=== PATIENT | female | born 1960 | race Caucasian/White ===

== ENCOUNTER 2021-09-29 16:26 | Inpatient (IN) | payer OTHER, SELFPAY ==
[2021-09-29] VITALS (21 sets, daily range): BP systolic 114–147; BP diastolic 62–79; PULSE 58–80; RESP 16–27; TEMP 36.9; O2SAT 92–100; BMI 38.2
--- NOTE | ~2021-09-29 | MR_ITS ---
EXAMINATION: MR abdomen wo/w con DATE: 10/02/2021 12:17 INDICATION: 6.8 cm left upper quadrant mass on prior CT TECHNIQUE: Magnetic resonance imaging (MRI) of the abdomen was performed without and with 20 mL Multi shivani intravenous contrast. Sequences included coronal T2-weighted SS-FSE, coronal and axial FS 2D-F IESTA, axial STIR FSE, axial T2-weighted SS-FSE, axial T2-weighted FS SS-FSE, axial diffusion-weighte d SE, axial dual-echo T1-weighted FSPGR, and axial and coronal T1-weighted LAVA. Postcontrast axial T 1-weighted LAVA images were obtained in a time course. Postcontrast coronal T1-weighted LAVA images w ere obtained. COMPARISON: CT dated 10/01/21 FINDINGS: Heart size is normal. No pericardial effusion. Small bilateral pleural effusions. There is also a sma ll amount of ascites as well as body wall edema. Peripancreatic edema and small amount of nonorganize d appearing acute peripancreatic fluid collection about the tail the pancreas consistent with acute p ancreatitis. There is approximately 303.5 similar globular region of edematous and nonenhancing paren chymal tissue at the tail of the pancreas suspicious for necrosis. There are also few small foci of i ncreased signal on the precontrast T1-weighted images along the periphery of the body and tail the pa ncreas which could represent proteinaceous fluid or hemorrhage. There is a nonocclusive filling defec t along a short segment of the adjacent splenic vein consistent with secondary thrombosis. Diffuse hepatic steatosis. Couple low signal intensity gallstones in the dependent aspect of the othe rwise normal gallbladder with no wall thickening or pericholecystic inflammatory change to suggest ac baldev cholecystitis. Common bile duct measures up to 7 mm in maximal diameter which is at the upper iqbal its of normal for age but which tapers smoothly distally with no evident obstructing stones or strict ure. No intrahepatic biliary ductal dilation. Spleen, right adrenal gland and right kidney are normal . 1 cm T2 hyperintense nonenhancing cyst at the lower pole of the left kidney. 7.3 x 6.7 cm complex cystic mass which appears to arise from the medial limb of the left adrenal glan d which centrally is homogeneously T1 isointense and slightly T1 hyperintense to skeletal muscle with out enhancement. There is a thin crescentic peripheral region on the lateral side of the mass which i s nearly without signal on T2-weighted images and mildly T1 hyperintense also without enhancement sug gesting proteinaceous/hemorrhagic fluid. This is separate from the larger cystic portion of the mass may be within curvilinear line of calcification on the prior CT. There is very thin peripheral smooth rim of enhancement. No solid nodular enhancing soft tissue component. Visualized portion of the bowels are normal with no dilated bowel to suggest obstruction. 9 mm pedunc ulated fibroid arising from the anterior uterine fundus. Visualized portion of the bladder is unremar kable. No pathologically enlarged lymphadenopathy in the abdomen or visualized pelvis. Bone marrow si gnal is normal throughout. IMPRESSION: 1. Acute pancreatitis with both interstitial component as well as a necrotic component along the tail of the pancreas with small nonloculated acute peripancreatic fluid collection, few small peripheral foci of T1 hyperintense either proteinaceous fluid or hemorrhage as well as small amount of nonocclus jaswant thrombus along short segment of the adjacent splenic vein. 2. Likely benign 7.3 x 6.7 cm complex cystic mass arising from the left adrenal gland with thin perip heral partially calcified rim on prior CT likely representing a chronic hematoma. No enhancing solid soft tissue component to suggest neoplasm. 3. Cholelithiasis with borderline dilation of the common bile duct but without evident obstructing st one or stricture and without intrahepatic biliary ductal dilation. 4.
--- NOTE | ~2021-09-29 | XR_ITS ---
EXAMINATION: XR chest 2V DATE: 10/02/2021 12:21 INDICATION: Pleural effusion TECHNIQUE: AP and lateral views of the chest are obtained. COMPARISON: None available FINDINGS: There are airspace opacities of the lung bases. Small pleural effusions are present. There is no pneumothorax. The cardiomediastinal silhouette is normal. There is mild thoracic spondylosis. C alcified pulmonary nodules are consistent with old granulomatous disease. A left upper extremity PICC ends with its tip in the right atrium. IMPRESSION: 1. Small pleural effusions with bibasilar airspace opacities, consistent with pulmonary edema and ate lectasis. 2. Left upper extremity PICC ending in the right atrium. Reviewed, dictated and finalized at location A. IMPRESSION: 1. Small pleural effusions with bibasilar airspace opacities, consistent with p ulmonary edema and atelectasis. 2. Left upper extremity PICC ending in the right atrium.
--- NOTE | ~2021-09-29 | CT_ITS ---
EXAMINATION: CT abdomen pelvis wo con DATE: 10/01/2021 09:50 INDICATION: Generalized abdominal pain. Acute pancreatitis. TECHNIQUE: Computed tomography (CT) of the abdomen and pelvis was performed without intravenous contr ast. Automated exposure control and iterative reconstruction technique were employed. The dose-length product was 1441.59 mGy-cm. COMPARISON: CT abdomen and pelvis 09/29/2021 FINDINGS: The visualized portions of the lung bases demonstrate smooth septal thickening, consistent with mild pulmonary edema. There are small pleural effusions. There is mild atelectasis bilaterally. Calcified right hilar and mediastinal lymph nodes are consistent with old granulomatous disease. The heart size is normal. There are coronary artery calcifications. No pericardial effusion. There is dif fuse hepatic steatosis. There are gallstones in the gallbladder, which is normal in size. Calcificati ons in the spleen are consistent with old granulomatous disease. There is fat stranding and free flui d in the retroperitoneum including around the pancreas. There is a small volume of ascites. Right adr enal gland is normal. There is a 6.8 cm mixed solid and cystic mass with calcifications around the cy stic component in left abdomen abutting the left adrenal gland and left kidney. The right kidney is n ormal. There is no urolithiasis. There are no dilated loops of bowel. The appendix is not well-visual ized. There are no pathologically enlarged lymph nodes. IMPRESSION: 1. Worsened findings of acute pancreatitis 2. Worsened small volume of ascites. 3. Worsened small pleural effusions. 4. 6.8 cm mixed solid and cystic mass in left abdomen abutting the left adrenal gland and left kidney that could arise from either organ. This finding may be benign or malignant. Abdomen MRI without and with contrast is recommended. 5. Cholelithiasis. 6. Diffuse hepatic steatosis. Reviewed, dictated and finalized at location A.
--- NOTE | ~2021-09-29 | US_ITS ---
US abdomen limited DATE: 09/30/2021 09:28 INDICATION: Mid abdominal pain TECHNIQUE: Real-time imaging of liver, pancreas, gallbladder COMPARISON: 09/29/2021 CT abdomen pelvis FINDINGS: There is hepatic steatosis. No hepatic space-occupying mass lesion is evident. Normal hepat opedal portal venous flow direction. Filling defects of the gallbladder with associated acoustical shadowing, consistent with cholelithias is. The pancreas is relatively hypoechoic, consistent with pancreatitis noted on CT imaging of 09/29/2021. The common bile duct measures 5 mm, within normal range IMPRESSION: Hepatic steatosis Pancreatitis Cholelithiasis Reviewed, dictated and finalized at Location [facility]. Reviewed, dictated and finalized at location A.
--- NOTE | ~2021-09-29 | CT_ITS ---
EXAMINATION: CT abdomen pelvis wo con DATE: 09/29/2021 17:34 INDICATION: mid abdominal pain, n/v TECHNIQUE: Computed tomography (CT) of the abdomen and pelvis was performed without intravenous contr ast. Automated exposure control and iterative reconstruction technique were employed. The dose-length product was 1293.34 mGy-cm. COMPARISON: None. FINDINGS: Lower thorax: Senescent changes and bibasilar atelectasis. Liver: Diffusely low density. Biliary/Gallbladder: Cholelithiasis. No bile duct dilation. Pancreas: Prominent peripancreatic inflammation and fluid. Spleen: Normal. Adrenals:6.4 cm cystic mass with thin rim calcification and peripheral soft tissue density, possibly associated with the left adrenal or left kidney. Right adrenal is normal Kidneys: Left suprarenal versus renal mass as above, no hydronephrosis or calcification. GI tract: No small or large bowel dilation. Normal appendix. Mesentery/Peritoneum: No ascites, mass, or free air. Retroperitoneum: No mass. Atherosclerotic abdominal aortic and/or arterial calcifications. Pelvis: Pelvic organs are within normal limits. Soft Tissues: Soft tissues and body wall unremarkable. Bones: No acute osseous finding. IMPRESSION: Acute interstitial pancreatitis. Left adrenal or renal mass, may reflect an old pseudocyst or other m ass, correlate with history and consider nonemergent, outpatient MRI of the abdomen for further janet cterization. Hepatic steatosis. Reviewed, dictated and finalized at location K. IMPRESSION: Acute interstitial pancreatitis. Left adrenal or renal mass, may reflect an old pseudocyst or other mass, correlate with history and consider nonemergent, out patient MRI of the abdomen for further characterization. Hepatic steatosis.
--- NOTE | 2021-09-29 16:40 | PC.NURSE ---
Dr. Clark at bedside to assess pt.
--- NOTE | 2021-09-29 16:46 | ED.ABDPAIN ---
HPI - Abdominal Pain General Chief Complaint: Abdominal Pain Stated Complaint: abd pain Time Seen by Provider: 09/29/21 16:34 History of Present Illness HPI narrative: 61-year-old female presenting to the emergency department for evaluation of mid abdominal pain. Patient states she began having the abdominal pain today and that is worsened. Patient does have associated nausea vomiting. Patient denies any diarrhea. Is unsure when she had a last bowel movement. Patient denies any prior surgical history. Denies any prior history of gallbladder disease. Patient denies frequent alcohol use or any recent heavy alcohol use. Patient denies any change in medications. Patient denies any prior history of pancreatitis. Related Data Allergies Allergy/AdvReac Type Severity Reaction Status Date / Time sulfamethoxazole Allergy Mild RASH Verified 11/19/18 06:08 trimethoprim Allergy Mild RASH Verified 11/19/18 06:08 Review of Systems Review of Systems: CONSTITUTIONAL: Denies fever, chills, or sweats. EYES: Denies visual changes, redness, or discharge. ENT: Denies rhinorrhea, congestion, sore throat, or otalgia. CARDIOVASCULAR: Denies chest pain, palpitations, or edema. RESPIRATORY: Denies cough or dyspnea. GASTROINTESTINAL: See HPI GENITOURINARY: Denies dysuria or hematuria. SKIN: Denies rash or itching. MUSCULOSKELETAL: Denies back pain, joint pain, or myalgia. NEUROLOGIC: Denies headache, numbness, or weakness. Exam Narrative: APPEARANCE: Well appearing, no pain, no distress, well-nourished. HEAD: normocephalic, atraumatic. EYES: PERRLA/EOMI, conjunctivae clear. NOSE: Normal no drainage NECK: Supple. No adenopathy, no masses. RESPIRATORY: Airway patent, respirations nonlabored. Clear to auscultation bilaterally, no rales, rhonchi, wheezing. CARDIOVASCULAR: Regular rate and rhythm without murmurs rubs or gallops. ABDOMINAL: Soft, nondistended, normal bowel sounds. Mid abdominal tenderness to palpation, minimal right upper quadrant tenderness to palpation MUSCULOSKELETAL: Moves all extremities. Strength/ROM intact, No edema, No calf tenderness. NEURO: Alert. Cranial nerves II through XII intact. Grossly intact SKIN: Warm, dry. Normal Color Course Course Emergency Course: CT shows evidence of acute interstitial pancreatitis. Patient's lipase is greater than 40,000. Patient did feel improved with IV fluids, Zofran and Dilaudid for pain control. Patient does have elevated AST and ALT but patient's alk phos and T bili are not elevated. Case discussed with hospitalist and patient is being admitted to [facility]. Vital Signs Vital signs: Vital Signs Pulse Rate 80 09/29/21 16:35 Respiratory Rate 19 09/29/21 16:35 Pulse Oximetry 97 09/29/21 16:35 Temperature 98.5 F 09/29/21 16:40 Pulse Rate 61 09/29/21 18:08 Respiratory Rate 23 H 09/29/21 18:08 Blood Pressure 139/79 09/29/21 17:38 Pulse Oximetry 99 09/29/21 18:08 Oxygen Delivery Room Air 09/29/21 16:40 MDM - Abdominal Pain Lab Data Attestation: I reviewed the patient's lab results. Result diagrams: 09/29/21 17:05 09/29/21 17:05 Labs: Lab Results 09/29/21 09/29/21 09/29/21 Range/Units 17:05 17:05 17:05 WBC 14.3 H (4.5-10.0) K/mm3 RBC 5.71 H (4.2-5.4) M/mm3 Hgb 17.1 H (12.0-15.0) g/dL Hct 50.5 H (37.0-47.0) % MCV 88.4 (80-100) fl MCH 29.9 (26-34) pg MCHC 33.9 (32-36) g/dl RDW 13.1 (11.5-14.5) % Plt Count 454 H (150-375) k/mm3 MPV 9.5 (7.4-10.4) fl Immature Gran % (Auto) 0.4 (0-0.5) % Neut % (Auto) 69.9 (45.5-73.1) % Lymph % (Auto) 19.0 (18.3-44.2) % Mcintosh % (Auto) 8.6 H (2.6-8.5) % Eos % (Auto) 1.5 (0-4.4) % Baso % (Auto) 0.6 (0.2-1.2) % Lymph # (Auto) 2.71 (0.9-3.2) K/mm3 Mcintosh # (Auto) 1.2 H (0.1-0.6) K/mm3 Eos # (Auto) 0.2 (0-0.3) K/mm3 Baso # (Auto) 0.1 (0.0-0.1) K/mm3 Abs Immat Gran (auto) 0.06 H (0
[2021-09-29] MEDS: ONDANSETRON INJ 4 MG/2 ML VIAL IV PUSH ×2 (16:58→22:13)
[2021-09-29] MEDS: HYDROmorphone HCL INJ (*CRX) 1 MG/ML SYR 0.5 MG IV PUSH ×3 (16:58→22:12)
[2021-09-29] MEDS: SODIUM CHLORIDE 0.9% IV 1,000 ML 999 ML IV CONT ×2 (16:59→18:32)
[2021-09-29 17:13] LABS: Basophils Absolute Auto 0.1 K/mm3 (0.0-0.1); Basophils Percent Auto 0.6 % (0.2-1.2); Eosinophils Absolute Auto 0.2 K/mm3 (0-0.3); Eosinophils Percent Auto 1.5 % (0-4.4); Hematocrit 50.5 % (37.0-47.0); Hemoglobin 17.1 g/dL (12.0-15.0); Immature Granulocyte Absolute 0.06 K/mm3 (0.00-0.031); Immature Granulocyte Percent A 0.4 % (0-0.5); Lymphocytes Absolute Auto 2.71 K/mm3 (0.9-3.2); Mean Corpuscular HGB Conc 33.9 g/dl (32-36); Mean Corpuscular Hemoglobin 29.9 pg (26-34); Mean Corpuscular Volume 88.4 fl (80-100); Mean Platelet Volume 9.5 fl (7.4-10.4); Monocytes Absolute Auto 1.2 K/mm3 (0.1-0.6); Monocytes Percent Auto 8.6 % (2.6-8.5); Neutrophils Percent Auto 69.9 % (45.5-73.1); Platelet Count Result 454 k/mm3 (150-375); Red Blood Count 5.71 M/mm3 (4.2-5.4); Red Cell Distribution Width 13.1 % (11.5-14.5); White Blood Count 14.3 K/mm3 (4.5-10.0)
[2021-09-29 17:23] LABS: Alanine Aminotransferase 185 U/L (6-35); Albumin Level 4.4 g/dL (3.5-5.1); Alkaline Phosphatase 85 U/L (38-126); Anion Gap 8 mmol/L (8-16); Aspartate Amino Transferase 237 U/L (14-36); Bilirubin,Total 1.3 mg/dL (0.2-1.3); Blood Urea Nitrogen 14 mg/dL (7-17); Calcium 9.5 mg/dL (8.4-10.2); Carbon Dioxide 29 mmol/L (22-30); Chloride 100 mmol/L (98-107); Estimated Glomerular Filt Rate > 60; Glucose 203 mg/dL (65-110); Potassium 3.6 mmol/L (3.4-5.0); Sodium 137 mmol/L (137-145)
[2021-09-29 17:51] LABS: Lipase > 40000 U/L (23-300)
[2021-09-29 17:59] LABS: Lactic Acid Reflex 2.5 mmol/L (0.7-2.0)
--- NOTE | 2021-09-29 19:17 | PC.NURSE ---
Patient report given to SOCORRO Flynn. All questions answered and care of patient transferred.
--- NOTE | 2021-09-29 19:18 | ADMGEN ---
This patient, Marva Hodge, was admitted to Medical Room 346-01. Patient/family oriented to hospital policies and general routines including ID bracelet, bed and alarms, visiting hours, pain management, procedures, bathroom and other care routines, personal items, smoking policy, room service/diet, and visiting hours. Information on how to activate the Rapid Response Team has been discussed. Patient/Family are encouraged to report perceived risks to care and to ask questions if they do not understand what they are told or what they should do.
[2021-09-29 20:47] LABS: Reflex Lactic Acid Yes or No Add Lactic
[2021-09-29] MEDS: SODIUM CHLORIDE 0.9% IV 1,000 ML 125 ML IV CONT (20:51)
[2021-09-29 21:11] LABS: Lactic Acid 2.2 mmol/L (0.7-2.0)
--- NOTE | 2021-09-29 22:00 | PM.IMHP ---
H&P: HPI History of Present Illness Date/Time: 09/29/21 22:00 Chief Complaint: Abdominal pain. Narrative: This is a pleasant 61-year-old female with hypertension and hypothyroidism who presented to the emergency department for evaluation of abdominal pain. She reports a gradual onset of pain in the mid to upper abdomen this morning which she initially attributed to constipation. Unfortunately the pain has gotten progressively more intense and she has since developed nausea and vomiting. The pain has been constant since this afternoon ?like a knot is in there and with palpation and movement she will have sharp shooting pains as well. It does not seem to radiate and she denies any significant alleviating factors. AST and ALT were elevated on labs today with a lipase of greater than 40,000 and she is being admitted in this setting. CT of the abdomen and pelvis showed acute interstitial pancreatitis, cholelithiasis, hepatic steatosis, and a left adrenal or renal mass. She has no known history of gallbladder disease or pancreatitis. She denies significant alcohol use and she has not had any recent change in medications. She has never been told that she had high triglycerides. Review of Systems Review of Systems: Twelve systems were reviewed and are negative except for as per HPI. [facility] Past Medical History Medical History (Updated 09/29/21 @ 23:07 by Abbi De Santiago PA-C) Hypertension Hypothyroidism Shingles (2014) Surgical History Surgical History (Updated 09/29/21 @ 23:04 by Abbi De Santiago PA-C) History of nasal septoplasty History of sinus surgery History of wisdom tooth extraction Family History Family History Sibling Diabetes mellitus Social History Social History (Updated 09/29/21 @ 23:05 by Abbi De Santiago PA-C) Social History: Surrogate decision maker: Shobha Torres, sister. Code status: Full code. 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 Spiritual care concerns: No Meds Home Medications and Allergies Home Medications Medication Instructions Recorded Confirmed Type atenolol 50 mg tablet (Tenormin) 1 tablet PO 1XD 09/29/21 09/29/21 History levothyroxine 112 mcg tablet 1 tablet PO 1XD 09/29/21 09/29/21 History (Synthroid) lisinopril 20 1 tablet PO 1XD 09/29/21 09/29/21 History mg-hydrochlorothiazide 25 mg tablet (Zestoretic) Allergies Allergy/AdvReac Type Severity Reaction Status Date / Time sulfamethoxazole Allergy Mild RASH Verified 11/19/18 06:08 trimethoprim Allergy Mild RASH Verified 11/19/18 06:08 Vital Signs Vital Signs - 24 hr 09/29/21 16:40 09/29/21 16:35 09/29/21 16:36 Temperature 98.5 F Pulse Rate 80 80 80 Respiratory Rate 18 19 18 Blood Pressure 141/69 H 141/69 H Pulse Oximetry 97 97 96 Oxygen Delivery Room Air Oxygen Flow Rate 09/29/21 16:46 09/29/21 16:47 09/29/21 17:04 Temperature Pulse Rate 74 65 72 Respiratory Rate 26 H 23 H 21 H Blood Pressure 135/70 Pulse Oximetry 95 96 Oxygen Delivery Oxygen Flow Rate 09/29/21 17:09 09/29/21 17:15 09/29/21 17:16 Temperature Pulse Rate 63 62 63 Respiratory Rate 16 27 H 27 H Blood Pressure 114/62 122/64 Pulse Oximetry 92 93 92 Oxygen Delivery Oxygen Flow Rate 09/29/21 17:37 09/29/21 17:38 09/29/21 17:45 Temperature Pulse Rate 62 Respiratory Rate 26 H Blood Pressure 139/79 Pulse Oximetry 98 98 98 Oxygen Delivery Oxygen Flow Rate 09/29/21 18:08 09/29/21 18:15 09/29/21 18:16 Temperature Pulse Rate 61 59 L 58 L Respiratory Rate 23 H 26 H 24 H Blood Pressure 137/73 Pulse Oximetry 99 99 100 Oxygen Delivery Oxygen Flow Rate
[2021-09-29 23:55] LABS: INR 1.5; Prothrombin Time 17.6 Seconds (11.1-14.7)
[2021-09-29 23:56] LABS: Partial Thromboplastin Time 40.3 SECONDS (22.3-36.8)
[2021-09-30 00:09] LABS: Triglycerides 118 mg/dL (<150)
[2021-09-30 00:41] VITALS: BP 165/75; PULSE 60; RESP 16; TEMP 36.7; O2SAT 97
[2021-09-30 01:28] LABS: Hemoglobin A1C 6.6 % (<5.7)
[2021-09-30] MEDS: HYDROmorphone HCL INJ (*CRX) 1 MG/ML SYR 0.5 MG IV PUSH ×5 (04:13→21:08)
[2021-09-30] MEDS: SODIUM CHLORIDE 0.9% IV 1,000 ML 150 ML IV CONT ×3 (04:16→16:27)
[2021-09-30 04:42] VITALS: TEMP 36.7
[2021-09-30] MEDS: LEVOTHYROXINE SODIUM INJ 100 MCG/5 ML VIAL 56 MCG IV PUSH (05:34)
[2021-09-30 06:00] VITALS: BP 181/84; PULSE 79; RESP 16; TEMP 36.9; O2SAT 97
[2021-09-30 06:12] LABS: Hematocrit 51.6 % (37.0-47.0); Hemoglobin 16.9 g/dL (12.0-15.0); Mean Corpuscular HGB Conc 32.8 g/dl (32-36); Mean Corpuscular Hemoglobin 29.7 pg (26-34); Mean Corpuscular Volume 90.7 fl (80-100); Mean Platelet Volume 9.5 fl (7.4-10.4); Platelet Count Result 339 k/mm3 (150-375); Red Blood Count 5.69 M/mm3 (4.2-5.4); Red Cell Distribution Width 13.2 % (11.5-14.5); White Blood Count 14.7 K/mm3 (4.5-10.0)
[2021-09-30 06:24] LABS: Lactic Acid Reflex 3.3 mmol/L (0.7-2.0)
[2021-09-30 06:27] LABS: Alanine Aminotransferase 137 U/L (6-35); Albumin Level 3.8 g/dL (3.5-5.1); Alkaline Phosphatase 69 U/L (38-126); Anion Gap 9 mmol/L (8-16); Aspartate Amino Transferase 78 U/L (14-36); Bilirubin,Total 0.3 mg/dL (0.2-1.3); Blood Urea Nitrogen 15 mg/dL (7-17); Calcium 7.8 mg/dL (8.4-10.2); Carbon Dioxide 21 mmol/L (22-30); Chloride 107 mmol/L (98-107); Estimated CRCL calculation 100 ml/min; Estimated Glomerular Filt Rate > 60; Glucose 246 mg/dL (65-110); Magnesium 1.7 mg/dL (1.6-2.3); Potassium 4.2 mmol/L (3.4-5.0); Sodium 137 mmol/L (137-145)
[2021-09-30 07:49] LABS: Hepatitis B Surface Antigen Negative (Negative)
[2021-09-30 07:50] LABS: Glucose Point of Care 263 mg/dl (65-105)
[2021-09-30 07:55] LABS: HAV RESULT Negative (Negative); Hepatitis B Core IgM Result Negative (Negative)
[2021-09-30 08:06] LABS: Hepatitis C Virus Antibody Negative (Negative)
--- NOTE | 2021-09-30 08:12 | PM.CNGS ---
Assessment and Plan Assessment and plan (1) Acute pancreatitis: Qualifiers: Acute pancreatitis complication: unspecified Pancreatitis type: unspecified pancreatitis type Qualified Code(s): K85.90 - Acute pancreatitis without necrosis or infection, unspecified Code(s): K85.90 - Acute pancreatitis without necrosis or infection, unspecified Status: Acute Assessment and Plan: cont to trend enzymes, likely secondary to choledocholithiasis, cont workup for other etiologies, pain control (2) Cholelithiasis: Code(s): K80.20 - Calculus of gallbladder without cholecystitis without obstruction Status: Acute Assessment and Plan: will get U/S today for further eval, will likely need interval cholecystectomy (3) Elevated LFTs: Code(s): R79.89 - Other specified abnormal findings of blood chemistry Status: Acute Assessment and Plan: see above, cont workup History of Present Illness Consult details Consult date: 09/30/21 Reason for consult: abdominal pain Requesting physician: Bryan Barbour MD Narrative: The patient is a 61 female presenting to the emergency department complaining of severe epigastric abdominal pain. The patient reports the pain started yesterday morning and progressively got more intense throughout the day. Patient reports pain radiates to her back. The patient reports some bloating, nausea, poor appetite since the onset of this episode. The previous similar episodes. The patient denies any fevers, chills, emesis. Review of Systems Constitutional: Constitutional: Reports anorexia, Denies chills, Reports fatigue, Denies fever(s), Denies malaise, Reports poor appetite, Denies weakness, Denies weight gain and Denies weight loss Eyes: Eyes: Reports no additional eye complaints ENT: Reports system reviewed and no additional complaints, except as documented Cardiovascular: Cardiovascular: Reports no additional cardiovascular complaints Respiratory: Respiratory: Reports no additional respiratory complaints Gastrointestinal: Gastrointestinal: Reports as per HPI, Reports abdominal pain, Reports bloating, Reports GI cramping, Reports nausea and Denies vomiting Musculoskeletal: Musculoskeletal: Reports no additional musculoskeletal complaints Integumentary/Breasts: Skin/Breast: Reports system reviewed and no additional complaints, except as docu Neurologic: Reports system reviewed and no additional complaints, except as documented Psychiatric: Psychiatric: Reports no additional psychiatric complaints Endocrine: Endocrine: Reports no additional endocrine complaints Hematologic/Lymphatic: Hematologic/Lymphatic: Reports no additional hematologic/lymphatic complaints Allergic/Immunologic: Allergic/Immunologic: Reports no additional allergic/immunologic complaints [facility] Past Medical History Medical History Hypertension Hypothyroidism Shingles (2015) Surgical History Surgical History History of nasal septoplasty History of sinus surgery History of wisdom tooth extraction Family History Family History Sibling Diabetes mellitus Social History Social History Social History: Surrogate decision maker: Shobha Torres, sister. Code status: Full code. 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 Spiritual care concerns: No Meds Home Medications and Allergies Home Medications Medication Instructions Recorded Confirmed Type atenolol 50 mg tablet (Tenormin) 1 tablet PO 1XD 09/29/21 09/29/21 History levoth
[2021-09-30] MEDS: ONDANSETRON INJ 4 MG/2 ML VIAL IV PUSH ×3 (08:15→16:21)
[2021-09-30 09:04] LABS: Reflex Lactic Acid Yes or No Add Lactic
--- NOTE | 2021-09-30 09:17 | PM.IMPN ---
Progress Note: A&P Assessment and Plan (1) Acute pancreatitis: Qualifiers: Acute pancreatitis complication: unspecified Pancreatitis type: unspecified pancreatitis type Qualified Code(s): K85.90 - Acute pancreatitis without necrosis or infection, unspecified Code(s): K85.90 - Acute pancreatitis without necrosis or infection, unspecified Status: Acute Assessment and Plan: Suspect gallstone pancreatitis with elevated LFTs. Triglyceride level is pending. Continue supportive care with aggressive IV fluid rehydration and analgesics and antiemetics as needed. Continue to trend LFTs and lipase levels. (2) Cholelithiasis: Code(s): K80.20 - Calculus of gallbladder without cholecystitis without obstruction Status: Acute Assessment and Plan: No evidence of cholecystitis on imaging or exam. Surgery consulted due to concerns for gallstone pancreatitis. Monitor vital signs, I and O's, check stool output, neuro status and patient is a fall risk Monitor serum electrolytes and CBC Monitor lactic acid IV pain management Gentle IV fluid resuscitation Consult general surgery for further evaluation, appreciate assistance and recommendation Diet:NPO initiating Zosyn for IV antibiotics empirically, will deescalate when appropriate. Patient does have a mild leukocytosis although this may be reactive. (3) Elevated LFTs: Code(s): R79.89 - Other specified abnormal findings of blood chemistry Status: Acute Assessment and Plan: Hepatocellular pattern with normal alkaline phosphatase and bilirubin. Hepatitis panel negative (4) Left adrenal mass: Code(s): E27.8 - Other specified disorders of adrenal gland Status: Acute Assessment and Plan: Left adrenal or renal mass noted on CT though she has no prior history of pancreatitis. Nonemergent, outpatient MRI recommended. (5) Hypothyroidism: Code(s): E03.9 - Hypothyroidism, unspecified Status: Acute Assessment and Plan: Continue levothyroxine and check TSH. (6) Hypertension: Code(s): I10 - Essential (primary) hypertension Status: Acute Assessment and Plan: Blood pressures were reviewed and they are stable. Hold antihypertensives for now as she is NPO. (7) Hepatic steatosis: Code(s): K76.0 - Fatty (change of) liver, not elsewhere classified Status: Acute Subjective Date/time seen: 09/30/21 09:17 Interval history: Patient is alert and oriented this morning. She did appear to be in significant pain. Ultrasound of her abdomen was performed. Pending results. General surgery was able to evaluate the patient and discuss possible surgical intervention if needed. Patient is currently NPO, IV fluids administered and pain management. Patient currently denies any nausea, vomiting, or diarrhea Review of Systems Review of Systems: All systems reviewed & are unremarkable except as noted in HPI and below Exam Narrative: General: Mildly ill-appearing female sitting up in bed. Weight: 104.4 kg. BMI: 38.3. HEENT: PERRL, EOMI. Sclerae anicteric. Tacky mucous membranes. Neck: Supple. Respiratory: Lungs are clear to auscultation bilaterally. Cardiovascular: Bradycardic with normal S1-S2. Gastrointestinal: Abdomen is soft and nondistended with positive bowel sounds. She is tender to palpation and percussion in the mid to upper abdomen, more so on the left. No rebound tenderness, some guarding. Skin: Warm and dry. No rash or lesions on limited exam. Extremities: No cyanosis, clubbing, or edema. Radial and pedal pulses intact. Neurological: Alert. Cranial nerves 2-12 are grossly intact. No gross focal deficits to casual conversation. Psychiatric: Pleasant and cooperative with normal mood and affect. Judgment and insight intact. Objective Data Vital Signs Vital Signs: Vital Signs - 24 hr 09/29/21 16:40 09/29/21 16:35 09/29/21 16:36 Temper
[2021-09-30 10:26] LABS: Lactic Acid 3.1 mmol/L (0.7-2.0)
[2021-09-30 11:21] LABS: Glucose Point of Care 262 mg/dl (65-105)
--- NOTE | 2021-09-30 13:38 | PCCCNOTE ---
On 09/30/21, the student, [Macie Ruiz], provided care and completed [facility] documentation on this patient. I have reviewed the student's documentation and agree with the findings.
[2021-09-30 14:00] VITALS: BP 154/100; PULSE 107; RESP 20; TEMP 36.4; O2SAT 93
[2021-09-30 16:43] LABS: Glucose Point of Care 254 mg/dl (65-105)
[2021-09-30 19:52] VITALS: PULSE 107; RESP 20; O2SAT 93
[2021-09-30 20:20] VITALS: BP 157/97; PULSE 115; RESP 18; TEMP 36.6; O2SAT 92
[2021-10-01] MEDS: SODIUM CHLORIDE 0.9% IV 1,000 ML 150 ML IV CONT ×3 (01:10→20:07)
[2021-10-01] MEDS: HYDROmorphone HCL INJ (*CRX) 1 MG/ML SYR 0.5 MG IV PUSH ×6 (01:11→23:54)
[2021-10-01 03:05] VITALS: O2SAT 93
[2021-10-01 05:05] VITALS: BP 162/90; PULSE 107; RESP 20; TEMP 36.5; O2SAT 92
[2021-10-01] MEDS: LEVOTHYROXINE SODIUM INJ 100 MCG/5 ML VIAL 56 MCG IV PUSH (05:36)
[2021-10-01 06:30] VITALS: TEMP 36.5
--- NOTE | 2021-10-01 06:54 | PM.IMPN ---
Progress Note: A&P Assessment and Plan (1) Acute pancreatitis: Qualifiers: Acute pancreatitis complication: unspecified Pancreatitis type: unspecified pancreatitis type Qualified Code(s): K85.90 - Acute pancreatitis without necrosis or infection, unspecified Code(s): K85.90 - Acute pancreatitis without necrosis or infection, unspecified Status: Acute Assessment and Plan: Suspect gallstone pancreatitis with elevated LFTs. however, the ultrasound of the abdomen did not reveal gallstones, cholelithiasis was found Triglyceride level is 118 Continue supportive care with aggressive IV fluid rehydration and analgesics and antiemetics as needed. Continue to trend LFTs and lipase levels. (2) Cholelithiasis: Code(s): K80.20 - Calculus of gallbladder without cholecystitis without obstruction Status: Acute Assessment and Plan: No evidence of cholecystitis on imaging or exam. Surgery consulted due to concerns for gallstone pancreatitis. Monitor vital signs, I and O's, check stool output, neuro status and patient is a fall risk Monitor serum electrolytes and CBC repeat lactic acid IV pain management continue IV fluid resuscitation Consulted general surgery for further evaluation, appreciate assistance and recommendation Diet:NPO initiating Zosyn for IV antibiotics empirically, will deescalate when appropriate. patient developed significant leukocytosis. Zosyn was started on 09/30/2021. Vancomycin was started on 10/01/2021. Continue with aggressive IV fluid resuscitation (3) Elevated LFTs: Code(s): R79.89 - Other specified abnormal findings of blood chemistry Status: Acute Assessment and Plan: Hepatocellular pattern with normal alkaline phosphatase and bilirubin. Hepatitis panel negative (4) Left adrenal mass: Code(s): E27.8 - Other specified disorders of adrenal gland Status: Acute Assessment and Plan: Left adrenal or renal mass noted on CT though she has no prior history of pancreatitis. Nonemergent, outpatient MRI recommended. (5) Hypothyroidism: Code(s): E03.9 - Hypothyroidism, unspecified Status: Acute Assessment and Plan: Continue levothyroxine (6) Hypertension: Code(s): I10 - Essential (primary) hypertension Status: Acute Assessment and Plan: Blood pressures were reviewed and they are stable. Hold antihypertensives for now as she is NPO. (7) Hepatic steatosis: Code(s): K76.0 - Fatty (change of) liver, not elsewhere classified Status: Acute Assessment and Plan: stable (8) Sepsis: Code(s): A41.9 - Sepsis, unspecified organism Status: Acute Assessment and Plan: Monitor I&Os, vital signs, neuro status and patient is a fall risk Monitor serum electrolytes, CBC, WBC, temperature curve and follow cultures Provide IV fluid resuscitation for hemodynamic stability IV Vancomycin, consult pharmacy to dose, send Vancomycin trough levels before 4th dose, and Zosyn 3.375mg Q 6 hours P.r.n. Tylenol, Zofran, and melatonin patient has a significant leukocytosis of 37.3. Patient's heart rate increased during the night. Patient's heart rate usually maintains in the 60s and 70s. Patient was 107 to 115 during the night And the morning of 10/01/2021 Subjective Date/time seen: 10/01/21 06:54 patient reports continued abdominal pain, diffuse. Receiving IV narcotics and IV fluids. Patient reports that she has been eating ice chips by the buckets . Reported to the patient she should not be consuming that many ice chips. Patient has been NPO since admission. Patient's WBC significantly increased. She was empirically started on Zosyn on 09/30/2021. This morning her WBC is 37.3. Vancomycin added for sepsis coverage. Continue aggressive IV fluid resuscitation. Ordered blood cultures. AST and ALT improved. Review of Systems Review of Systems:
[2021-10-01 07:45] LABS: Basophils Absolute Auto 0.1 K/mm3 (0.0-0.1); Basophils Percent Auto 0.3 % (0.2-1.2); Hematocrit 51.7 % (37.0-47.0); Hemoglobin 17.4 g/dL (12.0-15.0); Immature Granulocyte Absolute 0.28 K/mm3 (0.00-0.031); Immature Granulocyte Percent A 0.8 % (0-0.5); Lymphocytes Absolute Auto 1.12 K/mm3 (0.9-3.2); Mean Corpuscular HGB Conc 33.7 g/dl (32-36); Mean Corpuscular Volume 89.1 fl (80-100); Mean Platelet Volume 9.5 fl (7.4-10.4); Monocytes Absolute Auto 2.8 K/mm3 (0.1-0.6); Monocytes Percent Auto 7.6 % (2.6-8.5); Neutrophils Percent Auto 88.3 % (45.5-73.1); Platelet Count Result 355 k/mm3 (150-375); Red Cell Distribution Width 13.9 % (11.5-14.5); White Blood Count 37.3 K/mm3 (4.5-10.0)
[2021-10-01 08:00] LABS: Albumin Level 3.4 g/dL (3.5-5.1); Alkaline Phosphatase 61 U/L (38-126); Anion Gap 7 mmol/L (8-16); Aspartate Amino Transferase 42 U/L (14-36); Bilirubin,Total 0.7 mg/dL (0.2-1.3); Blood Urea Nitrogen 15 mg/dL (7-17); Calcium 6.6 mg/dL (8.4-10.2); Carbon Dioxide 20 mmol/L (22-30); Chloride 109 mmol/L (98-107); Estimated CRCL calculation 101 ml/min; Estimated Glomerular Filt Rate > 60; Glucose 273 mg/dL (65-110); Potassium 3.6 mmol/L (3.4-5.0); Sodium 136 mmol/L (137-145)
[2021-10-01 08:03] LABS: Alanine Aminotransferase 69 U/L (6-35)
[2021-10-01 09:38] LABS: Appearance Urine Slightly Cloudy (Clear); Bilirubin Urine Negative (Negative); Color Urine Yellow (Yellow); Glucose Urine UA 3+ mg/dL (Negative); Ketones Urine 1+ mg/dL (Negative); Leukocyte Esterase Ur Negative LEU/UL (NEGATIVE); Nitrate Urine Negative (Negative); Protein Urine 2+ mg/dL (Negative); Specific Grav Ur 1.025 (1.001-1.035); Urobilinogen Urine 0.2 mg/dL (<2.0)
[2021-10-01 09:42] LABS: Squamous Epithelial Cell Urine Rare /hpf (Few)
[2021-10-01 09:46] LABS: Add Urine Microscopic? YES; Blood Urine Trace-Intact (Negative)
--- NOTE | 2021-10-01 10:20 | PM.PNGS ---
Progress Note: A&P Assessment and Plan (1) Acute pancreatitis: Qualifiers: Acute pancreatitis complication: unspecified Pancreatitis type: unspecified pancreatitis type Qualified Code(s): K85.90 - Acute pancreatitis without necrosis or infection, unspecified Code(s): K85.90 - Acute pancreatitis without necrosis or infection, unspecified Status: Acute Assessment and Plan: repeat CT today given increasing leukocytosis, cont broad spectrum abx for now, exam largely unchanged (2) Cholelithiasis: Code(s): K80.20 - Calculus of gallbladder without cholecystitis without obstruction Status: Acute Assessment and Plan: will need interval cholecystectomy once pancreatitis improving Subjective Subjective Date/Time Seen: 10/01/21 10:20 Pt reports pain slightly improved, wants to eat Review of Systems Review of Systems: All systems reviewed & are unremarkable except as noted in HPI and below Exam Const: General: cooperative, no acute distress and tired appearing Nutritional Appearance: obese Orientation/consciousness: patient oriented x3 Resp: Auscultation: clear to auscultation bilaterally Cardio: Rate: regular rate Rhythm: regular rhythm GI: Inspection: normal to inspection and distended GI Palp: Yes abdominal tenderness, Yes Soft to palpation, Yes Tenderness to palpation present (GI), No Guarding due to palpation present (GI) and No Rigid due to palpation Objective Data Vital Signs Vital Signs: Vital Signs - 24 hr 09/30/21 14:00 09/30/21 19:52 09/30/21 20:20 Temperature 36.4 C 36.6 C Pulse Rate 107 H 107 H 115 H Respiratory Rate 20 20 18 Blood Pressure 154/100 H 157/97 H Pulse Oximetry 93 93 92 Oxygen Delivery Room Air 10/01/21 03:05 10/01/21 05:05 10/01/21 06:30 Temperature 36.5 C 36.5 C Pulse Rate 107 H Respiratory Rate 20 Blood Pressure 162/90 H Pulse Oximetry 93 92 Oxygen Delivery Room Air Intake/Output Intake/Output: Intake & Output 09/28/21 09/29/21 09/30/21 10/01/21 23:59 23:59 23:59 23:59 Intake Total 1999 4150 1150 Output Total 500 800 Balance 1999 3650 350 Meds/Results Medications: Active Medications Generic Name Dose Route Start Last Admin Trade Name Freq PRN Reason Stop Dose Admin Hydromorphone HCl 0.5 mg 10/01/21 08:33 10/01/21 09:35 Hydromorphone Hcl Inj (*Crx) 1 Mg/Ml Syr IV PUSH 0.5 mg Q3H PRN Administration Pain Rated 7-10 Sodium Chloride 1,000 mls @ 150 mls/hr 09/29/21 18:15 10/01/21 08:33 Normal Saline Iv IV CONT 150 mls/hr .Q6H40M BRENNAN Administration Piperacillin/Tazobactam/Dextrose 3.375 gm in 50 mls @ 100 mls/hr 09/30/21 10:00 10/01/21 04:50 Zosyn 3.375 Gm/D5w 50ml Pm IVPB Infused Q6H BRENNAN Infusion Vancomycin HCl 1,500 mg in 500 mls @ 333.333 mls/hr 10/01/21 09:00 Vancomycin 1,500 Mg/D5w 500 Ml IVPB Q12H BRENNAN Levothyroxine Sodium 56 mcg 09/30/21 06:30 10/01/21 05:36 Levothyroxine Sodium Inj 100 Mcg/5 Ml Vial IV PUSH 56 mcg DAILY@0630 BRENNAN Administration Metoprolol Tartrate 5 mg 10/01/21 08:37 Metoprolol Tartrate Inj 5 Mg/5 Ml Vial IV PUSH Q6HR PRN Tachycardia Ondansetron HCl 4 mg 09/29/21 18:15 09/30/21 16:21 Ondansetron Inj 4 Mg/2 Ml Vial IV PUSH 4 mg Q4H PRN Administration Nausea Pantoprazole Sodium 40 mg 10/01/21 09:00 Pantoprazole Sodium Iv 40 Mg Vial IV PUSH QAM [facility] Radiology Results: ITS Impressions Abdomen Ultrasound 09/30/21 13:20 IMPRESSION: Hepatic steatosis Pancreatitis Cholelithiasis Labs Labs: Laboratory Results - last 24 hr 09/30/21 09/30/21 09/30/21 10:12 11:12 16:35 WBC RBC Hgb Hct MCV MCH MCHC RDW Plt Count MPV Immature Gran % (Auto) Neut % (Auto) Lymph % (Auto) [place] % (Auto) Eos % (Auto) Baso % (Auto) Lymph # (Auto) [place] # (Auto) Eos # (Auto) Baso # (Auto) Abs Immat
[2021-10-01] MEDS: PANTOPRAZOLE SODIUM IV 40 MG VIAL IV PUSH (10:23)
[2021-10-01 10:33] LABS: Amylase 623 U/L (30-110)
[2021-10-01 10:38] LABS: Lipase 3664 U/L (23-300)
[2021-10-01 11:01] LABS: CRP 25.8 mg/dL (<1.0)
[2021-10-01 12:19] LABS: Reflex Lactic Acid Yes or No Add Lactic
[2021-10-01 13:35] LABS: Lactic Acid 2.7 mmol/L (0.7-2.0)
--- NOTE | 2021-10-01 14:05 | PC.NURSE ---
This patient, Marva Hodge, was received from 1252 on 10/01/21 at 1252. Report received from Purnima QUINTANILLA. Patient/family oriented to unit policies and routines
[2021-10-01] MEDS: ONDANSETRON INJ 4 MG/2 ML VIAL IV PUSH ×2 (14:33→20:15)
[2021-10-01] MEDS: SODIUM CHLORIDE 0.9% IV 500 ML IV CONT (14:43)
[2021-10-01 16:00] VITALS: BP 179/90; PULSE 105; PULSE 114; RESP 16; TEMP 36.8; O2SAT 92
[2021-10-01 17:37] LABS: Hemoglobin 16.2 g/dL (12.0-15.0); Mean Corpuscular HGB Conc 33.8 g/dl (32-36); Mean Corpuscular Hemoglobin 30.1 pg (26-34); Mean Corpuscular Volume 89.2 fl (80-100); Mean Platelet Volume 9.7 fl (7.4-10.4); Platelet Count Result 312 k/mm3 (150-375); Red Blood Count 5.38 M/mm3 (4.2-5.4); White Blood Count 33.1 K/mm3 (4.5-10.0)
[2021-10-01 17:48] LABS: Lactic Acid Reflex 2.7 mmol/L (0.7-2.0)
[2021-10-01 18:01] LABS: Atypical Lymphocytes Present; Band Neutrophils Percent 5 % (0-6); Lymphocytes Absolute Manual 0.66 K/mm3 (1.1-4.5); Monocytes Absolute Manual 1.65 K/mm3 (0.1-0.90); Monocytes Percent Manual 5 % (3-9); Neutrophils Absolute Manual 30.78 K/mm3 (1.7-7.2); Neutrophils Percent Manual 88 % (46-73); Platelet Estimate Adequate (Adequate); Total Cells Counted 100
[2021-10-01 20:00] VITALS: BP 151/94; PULSE 113; PULSE 114; RESP 18; TEMP 36.6; O2SAT 92
[2021-10-01 22:00] VITALS: PULSE 111
[2021-10-02] VITALS (11 sets, daily range): BP systolic 149–185; BP diastolic 68–97; PULSE 90–129; RESP 16–24; TEMP 35.8–36.8; O2SAT 89–94
[2021-10-02] MEDS: HYDROmorphone HCL INJ (*CRX) 1 MG/ML SYR 0.5 MG IV PUSH (04:10)
[2021-10-02] MEDS: ONDANSETRON INJ 4 MG/2 ML VIAL IV PUSH (04:10)
[2021-10-02] MEDS: SODIUM CHLORIDE 0.9% IV 1,000 ML 150 ML IV CONT (06:27)
[2021-10-02] MEDS: LEVOTHYROXINE SODIUM INJ 100 MCG/5 ML VIAL 56 MCG IV PUSH (06:27)
[2021-10-02] MEDS: LIDOCAINE HCL 1% PF INJ 5 ML VIAL INFILTRATE (08:40)
[2021-10-02] MEDS: HYDROmorphone HCL INJ (*CRX) 1 MG/ML SYR IV PUSH ×4 (09:32→22:50)
[2021-10-02 09:43] LABS: Hematocrit 43.1 % (37.0-47.0); Hemoglobin 14.7 g/dL (12.0-15.0); Mean Corpuscular HGB Conc 34.1 g/dl (32-36); Mean Corpuscular Hemoglobin 30.4 pg (26-34); Mean Platelet Volume 9.9 fl (7.4-10.4); Platelet Count Result 261 k/mm3 (150-375); Red Blood Count 4.84 M/mm3 (4.2-5.4); Red Cell Distribution Width 13.9 % (11.5-14.5); White Blood Count 28.7 K/mm3 (4.5-10.0)
[2021-10-02] MEDS: PANTOPRAZOLE SODIUM IV 40 MG VIAL IV PUSH (09:44)
[2021-10-02 09:52] LABS: Lactic Acid Reflex 1.5 mmol/L (0.7-2.0)
[2021-10-02 10:05] LABS: Alanine Aminotransferase 45 U/L (6-35); Albumin Level 3.1 g/dL (3.5-5.1); Alkaline Phosphatase 43 U/L (38-126); Anion Gap 2 mmol/L (8-16); Aspartate Amino Transferase 42 U/L (14-36); Bilirubin,Total 1.1 mg/dL (0.2-1.3); Blood Urea Nitrogen 17 mg/dL (7-17); Calcium 6.1 mg/dL (8.4-10.2); Carbon Dioxide 23 mmol/L (22-30); Chloride 107 mmol/L (98-107); Estimated CRCL calculation 104 ml/min; Estimated Glomerular Filt Rate > 60; Glucose 215 mg/dL (65-110); Magnesium 1.9 mg/dL (1.6-2.3); Potassium 5.7 mmol/L (3.4-5.0); Sodium 132 mmol/L (137-145)
--- NOTE | 2021-10-02 10:41 | P.PNIM_ITS ---
Progress Note: A&P Assessment and Plan (1) Acute pancreatitis: Qualifiers: Acute pancreatitis complication: unspecified Pancreatitis type: unspecified pancreatitis type Qualified Code(s): K85.90 - Acute pancreatitis without necrosis or infection, unspecified Code(s): K85.90 - Acute pancreatitis without necrosis or infection, unspecified Status: Acute Assessment and Plan: Patient presented with abdominal pain. CT showed acute interstitial pancreatitis * Suspect gallstone pancreatitis with evidence of cholelithiasis on abdominal ultrasound and elevated LFTs * Repeat CT abdomen/pelvis on 10/01 showed worsened pancreatitis with fat stranding and free fluid in the retroperitoneum * Continue IV fluid rehydration * Analgesics available as needed * Patient currently NPO while awaiting MRI. Will advance to clear liquids following this if okay with general surgery * Lipase pending today (2) Cholelithiasis: Code(s): K80.20 - Calculus of gallbladder without cholecystitis without obstruction Status: Acute Assessment and Plan: Abdominal ultrasound revealed pancreatitis with cholelithiasis, normal size common bile duct * No evidence of acute cholecystitis * Appreciate general surgery consultation * Will need cholecystectomy upon improvement of pancreatitis (3) Sepsis: Code(s): A41.9 - Sepsis, unspecified organism Status: Acute Assessment and Plan: Patient septic with increased leukocytosis, tachycardia, tachypnea, lactic acidosis. * May be due to acute pancreatitis/cholelithiasis. No evidence of necrotizing pancreatitis or acute cholecystitis on imaging * Blood cultures pending * Will evaluate CXR. UA without concerns for infection * Continue broad-spectrum IV vancomycin and Zosyn * WBC trending to 28,000 today. * Remains tachycardic, however is asymptomatic. Continue to monitor on telemetry * Lactic acid levels have normalized * Monitor vital signs, intake and output closely (4) Elevated LFTs: Code(s): R79.89 - Other specified abnormal findings of blood chemistry Status: Acute Assessment and Plan: Improved. * AST ALT continue to trend down * Alk-phos is normal. Total bilirubin normal * Hepatitis panel negative * Continue to monitor labs (5) Left adrenal mass: Code(s): E27.8 - Other specified disorders of adrenal gland Status: Acute Assessment and Plan: CT on presentation showed left adrenal or renal mass * Repeat CT on 10/01 reveals 6.8 cm mixed solid and cystic mass in the left abdomen abutting the left adrenal gland left kidney * Abdominal MRI pending for further evaluation (6) Hypothyroidism: Code(s): E03.9 - Hypothyroidism, unspecified Status: Acute Assessment and Plan: TSH is within normal limits * Continue levothyroxine (7) Hypertension: Code(s): I10 - Essential (primary) hypertension Status: Acute Assessment and Plan: Blood pressures were reviewed and has been elevated, likely due to pain. Last BP 149/97 * P.o. antihypertensives on hold as the patient is NPO * Hydralazine available as needed for systolic BP >170 (8) Hyperkalemia: Code(s): E87.5 - Hyperkalemia Status: Acute Assessment and Plan: Potassium elevated at 5.7 on labs this morning * Potassium yesterday was 3.6 * Patient has not been given any medications that would raise potassium or potassium supplementation therefore suspect this may be erroneous lab re
--- NOTE | 2021-10-02 10:41 | PM.IMPN ---
Progress Note: A&P Assessment and Plan (1) Acute pancreatitis: Qualifiers: Acute pancreatitis complication: unspecified Pancreatitis type: unspecified pancreatitis type Qualified Code(s): K85.90 - Acute pancreatitis without necrosis or infection, unspecified Code(s): K85.90 - Acute pancreatitis without necrosis or infection, unspecified Status: Acute Assessment and Plan: Patient presented with abdominal pain. CT showed acute interstitial pancreatitis Suspect gallstone pancreatitis with evidence of cholelithiasis on abdominal ultrasound and elevated LFTs Repeat CT abdomen/pelvis on 10/01 showed worsened pancreatitis with fat stranding and free fluid in the retroperitoneum Continue IV fluid rehydration Analgesics available as needed Patient currently NPO while awaiting MRI. Will advance to clear liquids following this if okay with general surgery Lipase pending today (2) Cholelithiasis: Code(s): K80.20 - Calculus of gallbladder without cholecystitis without obstruction Status: Acute Assessment and Plan: Abdominal ultrasound revealed pancreatitis with cholelithiasis, normal size common bile duct No evidence of acute cholecystitis Appreciate general surgery consultation Will need cholecystectomy upon improvement of pancreatitis (3) Sepsis: Code(s): A41.9 - Sepsis, unspecified organism Status: Acute Assessment and Plan: Patient septic with increased leukocytosis, tachycardia, tachypnea, lactic acidosis. May be due to acute pancreatitis/cholelithiasis. No evidence of necrotizing pancreatitis or acute cholecystitis on imaging Blood cultures pending Will evaluate CXR. UA without concerns for infection Continue broad-spectrum IV vancomycin and Zosyn WBC trending to 28,000 today. Remains tachycardic, however is asymptomatic. Continue to monitor on telemetry Lactic acid levels have normalized Monitor vital signs, intake and output closely (4) Elevated LFTs: Code(s): R79.89 - Other specified abnormal findings of blood chemistry Status: Acute Assessment and Plan: Improved. AST ALT continue to trend down Alk-phos is normal. Total bilirubin normal Hepatitis panel negative Continue to monitor labs (5) Left adrenal mass: Code(s): E27.8 - Other specified disorders of adrenal gland Status: Acute Assessment and Plan: CT on presentation showed left adrenal or renal mass Repeat CT on 10/01 reveals 6.8 cm mixed solid and cystic mass in the left abdomen abutting the left adrenal gland left kidney Abdominal MRI pending for further evaluation (6) Hypothyroidism: Code(s): E03.9 - Hypothyroidism, unspecified Status: Acute Assessment and Plan: TSH is within normal limits Continue levothyroxine (7) Hypertension: Code(s): I10 - Essential (primary) hypertension Status: Acute Assessment and Plan: Blood pressures were reviewed and has been elevated, likely due to pain. Last BP 149/97 P.o. antihypertensives on hold as the patient is NPO Hydralazine available as needed for systolic BP >170 (8) Hyperkalemia: Code(s): E87.5 - Hyperkalemia Status: Acute Assessment and Plan: Potassium elevated at 5.7 on labs this morning Potassium yesterday was 3.6 Patient has not been given any medications that would raise potassium or potassium supplementation therefore suspect this may be erroneous lab reading Repeat stat potassium has been ordered If potassium remains elevated, will proceed with appropriate potassium lowering therapy Subjective Date/time seen: 10/02/21 10:41 Interval history: Date of service: 10/02/2021 Marva Hodge is a 61-year-old female with a history of hypertension, hypothyroidism who is seen in follow-up for acute pancreatitis and cholelithiasis. She is feeling poorly today. She has 8/10 epigastric abdominal elba
[2021-10-02 11:15] LABS: Potassium 3.9 mmol/L (3.4-5.0)
[2021-10-02 11:18] LABS: Lipase 1210 U/L (23-300)
--- NOTE | 2021-10-02 11:51 | PM.PNGS ---
Progress Note: A&P Assessment and Plan (1) Acute pancreatitis: Qualifiers: Acute pancreatitis complication: unspecified Pancreatitis type: unspecified pancreatitis type Qualified Code(s): K85.90 - Acute pancreatitis without necrosis or infection, unspecified Code(s): K85.90 - Acute pancreatitis without necrosis or infection, unspecified Status: Acute Assessment and Plan: cont conservative mgmt c IVF, pain control, abx, will get MRI for further eval today (2) Cholelithiasis: Code(s): K80.20 - Calculus of gallbladder without cholecystitis without obstruction Status: Acute Assessment and Plan: will likely need interval cholecystectomy once pancreatitis resolving Subjective Subjective Date/Time Seen: 10/02/21 11:51 still c/o significant epigastric abd pain, some nausea, no emesis Review of Systems Review of Systems: All systems reviewed & are unremarkable except as noted in HPI and below Exam Const: General: cooperative, ill appearing, tired appearing and uncomfortable Orientation/consciousness: patient oriented x3 Resp: Auscultation: clear to auscultation bilaterally Cardio: Rate: tachycardic Rhythm: regular rhythm GI: Inspection: normal to inspection and distended GI Palp: Yes abdominal tenderness, Yes Soft to palpation, Yes Tenderness to palpation present (GI), No Guarding due to palpation present (GI) and No Rigid due to palpation Objective Data Vital Signs Vital Signs: Vital Signs - 24 hr 10/01/21 16:00 10/01/21 16:00 10/01/21 20:00 Temperature 36.8 C Pulse Rate 105 H 114 H Respiratory Rate 16 Blood Pressure 179/90 H Pulse Oximetry 92 Oxygen Delivery Room Air 10/01/21 20:00 10/01/21 20:00 10/01/21 22:00 Temperature 36.6 C Pulse Rate 113 H 114 H 111 H Respiratory Rate 18 Blood Pressure 151/94 H Pulse Oximetry 92 Oxygen Delivery 10/02/21 00:00 10/02/21 00:00 10/02/21 00:00 Temperature 36.6 C Pulse Rate 110 H 129 H Respiratory Rate 24 H Blood Pressure 156/95 H Pulse Oximetry 92 Oxygen Delivery Room Air 10/02/21 02:00 10/02/21 04:00 10/02/21 04:00 Temperature Pulse Rate 103 H 110 H Respiratory Rate Blood Pressure Pulse Oximetry Oxygen Delivery Room Air 10/02/21 04:00 10/02/21 06:00 10/02/21 08:00 Temperature 36.6 C 36.8 C Pulse Rate 98 101 H 125 H Respiratory Rate 22 H 24 H Blood Pressure 185/89 H 149/97 H Pulse Oximetry 92 92 Oxygen Delivery 10/02/21 08:00 10/02/21 08:00 Temperature Pulse Rate 120 H Respiratory Rate Blood Pressure Pulse Oximetry Oxygen Delivery Room Air Intake/Output Intake/Output: Intake & Output 09/29/21 09/30/21 10/01/21 10/02/21 23:59 23:59 23:59 23:59 Intake Total 1999 4150 3540 1150 Output Total 500 800 Balance 1999 3650 2740 1150 Meds/Results Medications: Active Medications Generic Name Dose Route Start Last Admin Trade Name Freq PRN Reason Stop Dose Admin Hydralazine HCl 10 mg 10/02/21 11:17 Hydralazine Hcl 20 Mg/Ml Vial IV PUSH Q8H PRN Systolic BP >170 Hydromorphone HCl 1 mg 10/02/21 08:01 10/02/21 09:32 Hydromorphone Hcl Inj (*Crx) 1 Mg/Ml Syr IV PUSH 1 mg Q3H PRN Administration Pain Rated 7-10 Sodium Chloride 1,000 mls @ 150 mls/hr 09/29/21 18:15 10/02/21 06:27 Normal Saline Iv IV CONT 150 mls/hr .Q6H40M BRENNAN Administration Piperacillin/Tazobactam/Dextrose 3.375 gm in 50 mls @ 100 mls/hr 09/30/21 10:00 10/02/21 11:12 Zosyn 3.375 Gm/D5w 50ml Pm IVPB 100 mls/hr Q6H BRENNAN Administration Vancomycin HCl 1,500 mg in 500 mls @ 333.333 mls/hr 10/01/21 09:00 10/01/21 21:39 Vancomycin 1,500 Mg/D5w 500 Ml IVPB Infused Q12H BRENNAN Infusion Levothyroxine Sodium 56 mcg 09/30/21 06:30 10/02/21 06:27 Levothyroxine Sodium Inj 100 Mcg/5 Ml Vial IV PUSH 56 mcg DAILY@0630 BRENNAN Administration Metoprolol Tartrate 5 mg 10/01/21 08:37 Metoprolo
[2021-10-02 12:01] LABS: CRP 35.8 mg/dL (<1.0)
[2021-10-02] MEDS: CENTRAL LINE FLUSH 10 ML IV PUSH ×2 (15:11→21:53)
--- NOTE | 2021-10-02 16:00 | PC.NURSE ---
This patient, Marva Hodge, was received from IMU on 10/02/21 at 1658. Patient/family oriented to unit policies and routines. Report received from SOCORRO Pederson.
[2021-10-02] MEDS: hydrALAZINE HCL 20 MG/ML VIAL 10 MG IV PUSH (16:19)
[2021-10-02] MEDS: SODIUM CHLORIDE 0.9% IV 1,000 ML 110 ML IV CONT (20:38)
[2021-10-03] VITALS (12 sets, daily range): BP systolic 139–177; BP diastolic 70–86; PULSE 80–103; RESP 16–18; TEMP 36.2–36.8; O2SAT 92–94
[2021-10-03 02:32] LABS: Vancomycin Random 5.3 ug/mL (10-20)
[2021-10-03] MEDS: HYDROmorphone HCL INJ (*CRX) 1 MG/ML SYR IV PUSH ×6 (04:43→21:25)
[2021-10-03 04:58] LABS: Hematocrit 38.3 % (37.0-47.0); Hemoglobin 12.8 g/dL (12.0-15.0); Mean Corpuscular HGB Conc 33.4 g/dl (32-36); Mean Corpuscular Hemoglobin 29.8 pg (26-34); Mean Corpuscular Volume 89.3 fl (80-100); Platelet Count Result 235 k/mm3 (150-375); Red Blood Count 4.29 M/mm3 (4.2-5.4); White Blood Count 21.3 K/mm3 (4.5-10.0)
[2021-10-03 05:11] LABS: Alanine Aminotransferase 35 U/L (6-35); Alkaline Phosphatase 50 U/L (38-126); Anion Gap 4 mmol/L (8-16); Aspartate Amino Transferase 32 U/L (14-36); Bilirubin,Total 0.8 mg/dL (0.2-1.3); Blood Urea Nitrogen 15 mg/dL (7-17); Carbon Dioxide 25 mmol/L (22-30); Chloride 102 mmol/L (98-107); Estimated CRCL calculation 124 ml/min; Estimated Glomerular Filt Rate > 60; Glucose 238 mg/dL (65-110); Lipase 454 U/L (23-300); Potassium 3.8 mmol/L (3.4-5.0); Sodium 131 mmol/L (137-145)
[2021-10-03] MEDS: LEVOTHYROXINE SODIUM INJ 100 MCG/5 ML VIAL 56 MCG IV PUSH (06:19)
[2021-10-03] MEDS: CENTRAL LINE FLUSH 10 ML IV PUSH ×3 (06:27→21:25)
[2021-10-03] MEDS: PANTOPRAZOLE SODIUM IV 40 MG VIAL IV PUSH (08:02)
--- NOTE | 2021-10-03 08:45 | PM.PNGS ---
Progress Note: A&P Assessment and Plan (1) Acute pancreatitis: Qualifiers: Acute pancreatitis complication: unspecified Pancreatitis type: unspecified pancreatitis type Qualified Code(s): K85.90 - Acute pancreatitis without necrosis or infection, unspecified Code(s): K85.90 - Acute pancreatitis without necrosis or infection, unspecified Status: Acute Assessment and Plan: improving, cont supportive measures, will start clears (2) Cholelithiasis: Code(s): K80.20 - Calculus of gallbladder without cholecystitis without obstruction Status: Acute Assessment and Plan: will need interval cholecystectomy once pancreatitis resolves, ok to have done as outpt Subjective Subjective Date/Time Seen: 10/03/21 08:45 feels better, pain improved, still c poor appetite Review of Systems Review of Systems: All systems reviewed & are unremarkable except as noted in HPI and below Exam Const: General: cooperative, comfortable and no acute distress Orientation/consciousness: patient oriented x3 Resp: Auscultation: clear to auscultation bilaterally Cardio: Rate: regular rate Rhythm: regular rhythm GI: Inspection: normal to inspection, no edema and distended GI Palp: Yes abdominal tenderness, Yes Soft to palpation, Yes Tenderness to palpation present (GI), No Guarding due to palpation present (GI) and No Rigid due to palpation Objective Data Vital Signs Vital Signs: Vital Signs - 24 hr 10/02/21 12:00 10/02/21 16:00 10/02/21 16:00 Temperature 36.8 C 36.3 C L Pulse Rate 110 H 90 93 Respiratory Rate 16 24 H Blood Pressure 154/85 H 153/82 H Pulse Oximetry 94 93 Oxygen Delivery 10/02/21 17:00 10/02/21 18:48 10/02/21 20:00 Temperature 35.8 C L 35.9 C L 36.6 C Pulse Rate 112 H 103 H 106 H Respiratory Rate 20 20 20 Blood Pressure 161/78 H 155/94 H 160/82 H Pulse Oximetry 92 94 93 Oxygen Delivery 10/02/21 20:00 10/02/21 23:05 10/03/21 03:34 Temperature 36.6 C 36.4 C Pulse Rate 103 H 98 Respiratory Rate 20 16 Blood Pressure 177/68 H 152/78 H Pulse Oximetry 89 L 92 Oxygen Delivery Room Air 10/02/21 20:00 10/03/21 00:00 10/03/21 04:00 Temperature Pulse Rate 105 H 96 95 Respiratory Rate Blood Pressure Pulse Oximetry Oxygen Delivery 10/03/21 07:56 Temperature 36.2 C L Pulse Rate 93 Respiratory Rate 18 Blood Pressure 156/86 H Pulse Oximetry 94 Oxygen Delivery Intake/Output Intake/Output: Intake & Output 09/30/21 10/01/21 10/02/21 10/03/21 23:59 23:59 23:59 23:59 Intake Total 4150 3540 2750 1150 Output Total 500 800 Balance 3650 2740 2750 1150 Meds/Results Medications: Active Medications Generic Name Dose Route Start Last Admin Trade Name Freq PRN Reason Stop Dose Admin Hydralazine HCl 10 mg 10/02/21 11:17 10/02/21 16:19 Hydralazine Hcl 20 Mg/Ml Vial IV PUSH 10 mg Q8H PRN Administration Systolic BP >170 Hydromorphone HCl 1 mg 10/02/21 08:01 10/03/21 08:02 Hydromorphone Hcl Inj (*Crx) 1 Mg/Ml Syr IV PUSH 1 mg Q3H PRN Administration Pain Rated 7-10 Sodium Chloride 1,000 mls @ 110 mls/hr 09/29/21 18:15 10/02/21 20:38 Normal Saline Iv IV CONT 110 mls/hr .Q9H6M BRENNAN Administration Piperacillin/Tazobactam/Dextrose 3.375 gm in 50 mls @ 100 mls/hr 09/30/21 10:00 10/03/21 07:08 Zosyn 3.375 Gm/D5w 50ml Pm IVPB Infused Q6H BRENNAN Infusion Vancomycin HCl 1,750 mg in 500 mls @ 250 mls/hr 10/03/21 03:00 10/03/21 06:44 Vancomycin 1,750 Mg/D5w 500 Ml IVPB Infused Q12H BRENNAN Infusion Levothyroxine Sodium 56 mcg 09/30/21 06:30 10/03/21 06:19 Levothyroxine Sodium Inj 100 Mcg/5 Ml Vial IV PUSH 56 mcg DAILY@0630 BRENNAN Administration Metoprolol Tartrate 5 mg 10/01/21 08:37 Metoprolol Tartrate Inj 5 Mg/5 Ml Vial IV PUSH Q6HR PRN Tachycardia Ondansetron HCl 4 mg 09/29/21 18:15 10/02/21 04:10 Ondansetron Inj 4 Mg/2 Ml Vial IV PUSH 4 mg
[2021-10-03] MEDS: hydrALAZINE HCL 20 MG/ML VIAL 10 MG IV PUSH (12:01)
--- NOTE | 2021-10-03 13:25 | P.PNIM_ITS ---
Progress Note: A&P Assessment and Plan (1) Acute pancreatitis: Qualifiers: Acute pancreatitis complication: unspecified Pancreatitis type: unspecified pancreatitis type Qualified Code(s): K85.90 - Acute pancreatitis without necrosis or infection, unspecified Code(s): K85.90 - Acute pancreatitis without necrosis or infection, unspecified Status: Acute Assessment and Plan: Patient presented with abdominal pain. CT showed acute interstitial pancreatitis * Suspect gallstone pancreatitis with evidence of cholelithiasis on abdominal ultrasound and elevated LFTs * Repeat CT abdomen/pelvis on 10/01 showed worsened pancreatitis with fat stranding and free fluid in the retroperitoneum * 10/02 consult to GI given MRI findings of interstitial and necrotic component with small nonloculated acute peripancreatic fluid collection. Appreciate GI recommendations * Will discontinue IV fluid rehydration today as patient has become edematous. Monitor volume status closely * Analgesics available as needed * Trial clear liquids * Lipase trending down to 454 today. (2) Cholelithiasis: Code(s): K80.20 - Calculus of gallbladder without cholecystitis without obstruction Status: Acute Assessment and Plan: Abdominal ultrasound revealed pancreatitis with cholelithiasis, normal size common bile duct * No evidence of acute cholecystitis * Appreciate general surgery consultation * Will need cholecystectomy upon improvement of pancreatitis, per surgery can be completed outpatient (3) Sepsis: Code(s): A41.9 - Sepsis, unspecified organism Status: Acute Assessment and Plan: Patient septic with marked leukocytosis, tachycardia, tachypnea, lactic acidosis. * Most likely due to pancreatitis * Blood cultures pending, negative to date * UA and CXR reviewed without concerns for infection * Continue broad-spectrum IV vancomycin and Zosyn * WBC trending to 21,000 today. * Tachycardia improved. Tachypnea resolved. Remains afebrile. * Lactic acid levels have normalized * Monitor vital signs, intake and output closely (4) Elevated LFTs: Code(s): R79.89 - Other specified abnormal findings of blood chemistry Status: Acute Assessment and Plan: Resolved. 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 Last BP 176/85 * Resume p.o. antihypertensives. Atenolol 50 mg daily and lisinopril- hydrochlorothiazide 20-25 * Hydralazine available as needed for systolic BP >170 (8) Hyperkalemia: Code(s): E87.5 - Hyper
--- NOTE | 2021-10-03 13:25 | PM.IMPN ---
Progress Note: A&P Assessment and Plan (1) Acute pancreatitis: Qualifiers: Acute pancreatitis complication: unspecified Pancreatitis type: unspecified pancreatitis type Qualified Code(s): K85.90 - Acute pancreatitis without necrosis or infection, unspecified Code(s): K85.90 - Acute pancreatitis without necrosis or infection, unspecified Status: Acute Assessment and Plan: Patient presented with abdominal pain. CT showed acute interstitial pancreatitis Suspect gallstone pancreatitis with evidence of cholelithiasis on abdominal ultrasound and elevated LFTs Repeat CT abdomen/pelvis on 10/01 showed worsened pancreatitis with fat stranding and free fluid in the retroperitoneum 10/02 consult to GI given MRI findings of interstitial and necrotic component with small nonloculated acute peripancreatic fluid collection. Appreciate GI recommendations Will discontinue IV fluid rehydration today as patient has become edematous. Monitor volume status closely Analgesics available as needed Trial clear liquids Lipase trending down to 454 today. (2) Cholelithiasis: Code(s): K80.20 - Calculus of gallbladder without cholecystitis without obstruction Status: Acute Assessment and Plan: Abdominal ultrasound revealed pancreatitis with cholelithiasis, normal size common bile duct No evidence of acute cholecystitis Appreciate general surgery consultation Will need cholecystectomy upon improvement of pancreatitis, per surgery can be completed outpatient (3) Sepsis: Code(s): A41.9 - Sepsis, unspecified organism Status: Acute Assessment and Plan: Patient septic with marked leukocytosis, tachycardia, tachypnea, lactic acidosis. Most likely due to pancreatitis Blood cultures pending, negative to date UA and CXR reviewed without concerns for infection Continue broad-spectrum IV vancomycin and Zosyn WBC trending to 21,000 today. Tachycardia improved. Tachypnea resolved. Remains afebrile. Lactic acid levels have normalized Monitor vital signs, intake and output closely (4) Elevated LFTs: Code(s): R79.89 - Other specified abnormal findings of blood chemistry Status: Acute Assessment and Plan: Resolved. 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 Last BP 176/85 Resume p.o. antihypertensives. Atenolol 50 mg daily and lisinopril-hydrochlorothiazide 20-25 Hydralazine available as needed for systolic BP >170 (8) Hyperkalemia: Code(s): E87.5 - Hyperkalemia Status: Acute Assessment and Plan: Resolved. Potassium was elevated at 5.7 on a.m. labs 10/02 Prior readings have been normal inpatient had not been on any medications or supplementation to raise serum potassium Stat repeat was normal at 3.9 Elevated reading felt to be erroneous. No intervention required Continue to monitor BMP Subjective Date/time seen: 10/03/21 13:25 Interval history: Date of service:
[2021-10-03] MEDS: lisinopriL 20 MG TABLET PO (14:19)
[2021-10-03] MEDS: hydroCHLOROthiazide 25 MG TABLET PO (14:19)
[2021-10-03] MEDS: atenoloL 50 MG TABLET PO (14:20)
--- NOTE | 2021-10-03 14:40 | WPDGICN ---
Assessment and Plan Assessment and plan (1) Acute pancreatitis: Qualifiers: Acute pancreatitis complication: unspecified Pancreatitis type: unspecified pancreatitis type Qualified Code(s): K85.90 - Acute pancreatitis without necrosis or infection, unspecified Code(s): K85.90 - Acute pancreatitis without necrosis or infection, unspecified Status: Acute Assessment and Plan: new episode, noted cholelithiasis and surgery recommended interval cholecystectomy once pancreatitis resolves medical therapy for now, ok to start CL diet continue to monitor lft's (already trending down and improving) (2) Cholelithiasis: Code(s): K80.20 - Calculus of gallbladder without cholecystitis without obstruction Status: Acute (3) Elevated LFTs: Code(s): R79.89 - Other specified abnormal findings of blood chemistry Status: Acute Assessment and Plan: trending down no alcohol use from pancreatitis (4) Left adrenal mass: Code(s): E27.8 - Other specified disorders of adrenal gland Status: Acute (5) Upper abdominal pain: Code(s): R10.10 - Upper abdominal pain, unspecified Status: Acute Assessment and Plan: from pancreatitis (6) Hepatic steatosis: Code(s): K76.0 - Fatty (change of) liver, not elsewhere classified Status: Acute Assessment and Plan: follow-up as outpatient GI Consult Note Consult date/time: 10/03/21 14:40 Reason for consult: pancreatitis HPI: Marva Hodge is a 61 year old female with history of hypertension and hypothyroidism admitted 09/29 with new onset of severe upper abdominal pain with radiation to her back, then associated nausea and vomiting. Described as sharp shooting pains. Blood work consistent with acute pancreatitis, lipase [id number], transaminases 200's. Normal TG level and denies alcohol use. Never had pancreatitis. MRCP reviewed and showed acute pancreatitis with both interstitial component as well as a necrotic component along the tail of the pancreas with small nonloculated acute peripancreatic fluid collection, few small peripheral foci of T1 hyperintense either proteinaceous fluid or hemorrhage as well as small amount of nonocclusive thrombus along short segment of the adjacent splenic vein, fatty liver and cholelithiasis without choledocholithiasis. Liver enzymes and lipase trending down, she is still npo and already feeling better. Also evaluated by surgery and recommendation to have cholecystectomy in near future. Review of Systems Constitutional: Constitutional: Reports anorexia, Denies chills, Reports fatigue, Denies fever(s), Denies malaise, Reports poor appetite, Denies weakness, Denies weight gain and Denies weight loss Eyes: Eyes: Reports no additional eye complaints ENT: Reports system reviewed and no additional complaints, except as documented Cardiovascular: Cardiovascular: Reports no additional cardiovascular complaints Respiratory: Respiratory: Reports no additional respiratory complaints Gastrointestinal: Gastrointestinal: Reports as per HPI, Reports abdominal pain, Reports bloating, Reports GI cramping, Reports nausea and Denies vomiting Musculoskeletal: Musculoskeletal: Reports no additional musculoskeletal complaints Integumentary/Breasts: Skin/Breast: Reports system reviewed and no additional complaints, except as docu Neurologic: Reports system reviewed and no additional complaints, except as documented Psychiatric: Psychiatric: Reports no additional psychiatric complaints Endocrine: Endocrine: Reports no additional endocrine complaints Hematologic/Lymphatic: Hematologic/Lymphatic: Reports no additional hematologic/lymphatic complaints Allergic/Immunologic: Allergic/Immunologic: Reports no additional allergic/immunologic complaints [facility] Past Medical History Medical History (Updated 10/03/21 @ 14:46 by Tobi Ramos MD) Hypertension Hypothyroidism Shingles
[2021-10-04] VITALS (12 sets, daily range): BP systolic 130–150; BP diastolic 61–76; PULSE 64–86; RESP 16–20; TEMP 35.9–36.6; O2SAT 92–96; BMI 42.0
[2021-10-04] MEDS: HYDROmorphone HCL INJ (*CRX) 1 MG/ML SYR IV PUSH ×6 (02:03→21:10)
[2021-10-04] MEDS: LEVOTHYROXINE SODIUM INJ 100 MCG/5 ML VIAL 56 MCG IV PUSH (05:43)
[2021-10-04] MEDS: CENTRAL LINE FLUSH 10 ML IV PUSH ×2 (05:43→14:04)
[2021-10-04 06:49] LABS: Hematocrit 37.2 % (37.0-47.0); Hemoglobin 12.6 g/dL (12.0-15.0); Mean Corpuscular HGB Conc 33.9 g/dl (32-36); Mean Corpuscular Hemoglobin 29.8 pg (26-34); Mean Corpuscular Volume 87.9 fl (80-100); Platelet Count Result 275 k/mm3 (150-375); Red Blood Count 4.23 M/mm3 (4.2-5.4); Red Cell Distribution Width 14.1 % (11.5-14.5); White Blood Count 23.3 K/mm3 (4.5-10.0)
[2021-10-04 06:59] LABS: Anion Gap 2 mmol/L (8-16); Blood Urea Nitrogen 14 mg/dL (7-17); Calcium 6.4 mg/dL (8.4-10.2); Carbon Dioxide 29 mmol/L (22-30); Chloride 98 mmol/L (98-107); Estimated CRCL calculation 106 ml/min; Estimated Glomerular Filt Rate > 60; Glucose 196 mg/dL (65-110); Lipase 342 U/L (23-300); Magnesium 2.3 mg/dL (1.6-2.3); Potassium 3.6 mmol/L (3.4-5.0); Sodium 129 mmol/L (137-145)
[2021-10-04] MEDS: PANTOPRAZOLE SODIUM IV 40 MG VIAL IV PUSH (08:19)
[2021-10-04 08:55] LABS: Albumin Level 2.9 g/dL (3.5-5.1)
[2021-10-04] MEDS: lisinopriL 20 MG TABLET PO (11:41)
[2021-10-04] MEDS: hydroCHLOROthiazide 25 MG TABLET PO (11:41)
[2021-10-04] MEDS: atenoloL 50 MG TABLET PO (11:41)
--- NOTE | 2021-10-04 11:45 | PM.PNGS ---
Progress Note: A&P Assessment and Plan (1) Acute pancreatitis: Qualifiers: Acute pancreatitis complication: unspecified Pancreatitis type: unspecified pancreatitis type Qualified Code(s): K85.90 - Acute pancreatitis without necrosis or infection, unspecified Code(s): K85.90 - Acute pancreatitis without necrosis or infection, unspecified Status: Acute Assessment and Plan: cont to slowly resolve, slowly ADAT, cont abx (2) Cholelithiasis: Code(s): K80.20 - Calculus of gallbladder without cholecystitis without obstruction Status: Acute Assessment and Plan: will need interval cholecystectomy, likely as outpt as I would like longer interval secondary to severity of pancreatitis Subjective Subjective Date/Time Seen: 10/04/21 11:45 feels better, anderson clears Review of Systems Review of Systems: All systems reviewed & are unremarkable except as noted in HPI and below Exam Const: General: cooperative, comfortable and no acute distress Resp: Auscultation: clear to auscultation bilaterally Cardio: Rate: regular rate Rhythm: regular rhythm GI: Inspection: normal to inspection and distended GI Palp: Yes abdominal tenderness, Yes Soft to palpation, Yes Tenderness to palpation present (GI), No Guarding due to palpation present (GI) and No Rigid due to palpation Objective Data Vital Signs Vital Signs: Vital Signs - 24 hr 10/03/21 11:53 10/03/21 12:00 10/03/21 13:25 Temperature 36.8 C 36.3 C L Pulse Rate 94 97 99 Respiratory Rate 18 16 Blood Pressure 177/82 H 176/85 H Pulse Oximetry 92 93 Oxygen Delivery 10/03/21 14:20 10/03/21 16:00 10/03/21 16:00 Temperature 36.4 C Pulse Rate 103 H 80 91 Respiratory Rate 18 Blood Pressure 139/70 Pulse Oximetry 93 Oxygen Delivery 10/03/21 20:00 10/03/21 20:00 10/03/21 20:37 Temperature 36.4 C L 36.4 C L Pulse Rate 86 86 Respiratory Rate 16 16 Blood Pressure 151/82 H 151/82 H Pulse Oximetry 94 94 Oxygen Delivery Room Air 10/03/21 20:00 10/04/21 00:00 10/04/21 00:49 Temperature 36.2 C L Pulse Rate 88 74 76 Respiratory Rate 18 Blood Pressure 130/62 Pulse Oximetry 96 Oxygen Delivery 10/04/21 04:00 10/04/21 04:35 10/04/21 08:29 Temperature 35.9 C L Pulse Rate 84 72 Respiratory Rate 18 Blood Pressure 134/69 Pulse Oximetry 96 Oxygen Delivery Room Air 10/04/21 08:00 10/04/21 10:00 10/04/21 11:41 Temperature 36.6 C Pulse Rate 71 70 86 Respiratory Rate 16 Blood Pressure 150/61 H Pulse Oximetry 93 Oxygen Delivery Intake/Output Intake/Output: Intake & Output 10/01/21 10/02/21 10/03/21 10/04/21 23:59 23:59 23:59 23:59 Intake Total 3540 2750 3810 1510 Output Total 800 Balance 2740 2750 3810 1510 Meds/Results Medications: Active Medications Generic Name Dose Route Start Last Admin Trade Name Freq PRN Reason Stop Dose Admin Atenolol 50 mg 10/03/21 13:45 10/04/21 11:41 Atenolol 50 Mg Tablet PO 50 mg DAILY BRENNAN Administration Hydralazine HCl 10 mg 10/02/21 11:17 10/03/21 12:01 Hydralazine Hcl 20 Mg/Ml Vial IV PUSH 10 mg Q8H PRN Administration Systolic BP >170 Hydrochlorothiazide 25 mg 10/03/21 13:45 10/04/21 11:41 Hydrochlorothiazide 25 Mg Tablet PO 25 mg DAILY BRENNAN Administration Hydromorphone HCl 1 mg 10/02/21 08:01 10/04/21 09:21 Hydromorphone Hcl Inj (*Crx) 1 Mg/Ml Syr IV PUSH 1 mg Q3H PRN Administration Pain Rated 7-10 Piperacillin/Tazobactam/Dextrose 3.375 gm in 50 mls @ 100 mls/hr 09/30/21 10:00 10/04/21 09:50 Zosyn 3.375 Gm/D5w 50ml Pm IVPB Infused Q6H BRENNAN Infusion Vancomycin HCl 1,750 mg in 500 mls @ 250 mls/hr 10/03/21 03:00 10/04/21 05:27 Vancomycin 1,750 Mg/D5w 500 Ml IVPB Infused Q12H BRENNAN Infusion Levothyroxine Sodium 56 mcg 09/30/21 06:30 10/04/21 05:43 Levothyroxine Sodium Inj 100 Mcg/5 Ml Vial IV PUSH 56 mcg DAILY@0630 [facility] Adm
[2021-10-04 12:46] LABS: Sodium 127 mmol/L (137-145)
[2021-10-04 13:09] LABS: Creatinine Urine 65.6 mg/dL
[2021-10-04 13:10] LABS: Sodium Urine Random 10 meq/L
--- NOTE | 2021-10-04 15:00 | P.PNIM_ITS ---
Progress Note: A&P Assessment and Plan (1) Acute pancreatitis: Qualifiers: Acute pancreatitis complication: unspecified Pancreatitis type: unspecified pancreatitis type Qualified Code(s): K85.90 - Acute pancreatitis without necrosis or infection, unspecified Code(s): K85.90 - Acute pancreatitis without necrosis or infection, unspecified Status: Acute Assessment and Plan: Patient presented with abdominal pain. CT showed acute interstitial pancreatitis * Suspect gallstone pancreatitis with evidence of cholelithiasis on abdominal ultrasound and elevated LFTs * Repeat CT abdomen/pelvis on 10/01 showed worsened pancreatitis with fat stranding and free fluid in the retroperitoneum * 10/02 consult to GI given MRI findings of interstitial and necrotic component with small nonloculated acute peripancreatic fluid collection. Appreciate GI recommendations * She has been rehydrated. IV fluids discontinued 10/03 as patient became edematous. Monitor volume status. * Analgesics available as needed * Continue with clear liquid diet. Will slowly advance diet. Trial full liquids tomororw. * Lipase trending down to 342 today. (2) Cholelithiasis: Code(s): K80.20 - Calculus of gallbladder without cholecystitis without obstruction Status: Acute Assessment and Plan: Abdominal ultrasound revealed pancreatitis with cholelithiasis, normal size common bile duct * No evidence of acute cholecystitis * Appreciate general surgery consultation * Will need cholecystectomy upon improvement of pancreatitis, per surgery will be outpatient to allow for resolution of pancreatitis (3) Sepsis: Code(s): A41.9 - Sepsis, unspecified organism Status: Acute Assessment and Plan: Patient septic with marked leukocytosis, tachycardia, tachypnea, lactic acidosis. * Most likely due to necrotic pancreatitis * Blood cultures pending, negative to date after >48 hours * Will discontinue IV Vancomycin. Continue Zosyn. Discussed case with ID PharmD * [place] [id number] but overall downward trend. Monitor CBC * Tachycardia and tachypnea resolved. Remains afebrile. * Lactic acid levels have normalized * Monitor vital signs, intake and output closely (4) Elevated LFTs: Code(s): R79.89 - Other specified abnormal findings of blood chemistry Status: Acute Assessment and Plan: Resolved. 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 * Continue atenolol 50 mg daily and lisinopril * Hydralazine available as needed for systolic B
--- NOTE | 2021-10-04 15:00 | PM.IMPN ---
Progress Note: A&P Assessment and Plan (1) Acute pancreatitis: Qualifiers: Acute pancreatitis complication: unspecified Pancreatitis type: unspecified pancreatitis type Qualified Code(s): K85.90 - Acute pancreatitis without necrosis or infection, unspecified Code(s): K85.90 - Acute pancreatitis without necrosis or infection, unspecified Status: Acute Assessment and Plan: Patient presented with abdominal pain. CT showed acute interstitial pancreatitis Suspect gallstone pancreatitis with evidence of cholelithiasis on abdominal ultrasound and elevated LFTs Repeat CT abdomen/pelvis on 10/01 showed worsened pancreatitis with fat stranding and free fluid in the retroperitoneum 10/02 consult to GI given MRI findings of interstitial and necrotic component with small nonloculated acute peripancreatic fluid collection. Appreciate GI recommendations She has been rehydrated. IV fluids discontinued 10/03 as patient became edematous. Monitor volume status. Analgesics available as needed Continue with clear liquid diet. Will slowly advance diet. Trial full liquids tomororw. Lipase trending down to 342 today. (2) Cholelithiasis: Code(s): K80.20 - Calculus of gallbladder without cholecystitis without obstruction Status: Acute Assessment and Plan: Abdominal ultrasound revealed pancreatitis with cholelithiasis, normal size common bile duct No evidence of acute cholecystitis Appreciate general surgery consultation Will need cholecystectomy upon improvement of pancreatitis, per surgery will be outpatient to allow for resolution of pancreatitis (3) Sepsis: Code(s): A41.9 - Sepsis, unspecified organism Status: Acute Assessment and Plan: Patient septic with marked leukocytosis, tachycardia, tachypnea, lactic acidosis. Most likely due to necrotic pancreatitis Blood cultures pending, negative to date after >48 hours Will discontinue IV Vancomycin. Continue Zosyn. Discussed case with ID [place] [id number] but overall downward trend. Monitor CBC Tachycardia and tachypnea resolved. Remains afebrile. Lactic acid levels have normalized Monitor vital signs, intake and output closely (4) Elevated LFTs: Code(s): R79.89 - Other specified abnormal findings of blood chemistry Status: Acute Assessment and Plan: Resolved. 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 Continue atenolol 50 mg daily and lisinopril Hydralazine available as needed for systolic BP >170 (8) Hyponatremia: Code(s): E87.1 - Hypo-osmolality and hyponatremia Status: Acute Assessment and Plan: Sodium decreased to 127 today. Most likely hypervolemic hyponatremia Will administer IV Lasix 20 mg and monitor for response. Recheck sodium this evening Subjective Date/time seen: 10/04/21 15:00 Interval history: Date of service: 10/04/2021 Marva Hodge is a 61-year-old femal
--- NOTE | 2021-10-04 15:07 | PCNSR ---
On 10/04/21, the student, Bhavya Richardson, provided care and completed [facility] documentation on this patient. I have reviewed the student's documentation and agree with the findings.
--- NOTE | 2021-10-04 16:48 | WPDGIPROGNO ---
Progress Note: A&P Assessment and Plan (1) Acute pancreatitis: Qualifiers: Acute pancreatitis complication: unspecified Pancreatitis type: unspecified pancreatitis type Qualified Code(s): K85.90 - Acute pancreatitis without necrosis or infection, unspecified Code(s): K85.90 - Acute pancreatitis without necrosis or infection, unspecified Status: Acute Assessment and Plan: feeling better, no more nausea but still some pain will advance diet as tolerated, eat small amount and reassess in am (2) Cholelithiasis: Code(s): K80.20 - Calculus of gallbladder without cholecystitis without obstruction Status: Acute Assessment and Plan: will need interval cholecystectomy, probably as outpatient (3) Elevated LFTs: Code(s): R79.89 - Other specified abnormal findings of blood chemistry Status: Acute Assessment and Plan: already trending down (4) Upper abdominal pain: Code(s): R10.10 - Upper abdominal pain, unspecified Status: Acute (5) Hyponatremia: Code(s): E87.1 - Hypo-osmolality and hyponatremia Status: Acute Assessment and Plan: monitor Subjective Date/time seen: 10/04/21 16:48 tolerating CL diet, no nausea and less pain but still required pain med, would like to advance diet if possible Review of Systems Review of Systems: All systems reviewed & are unremarkable except as noted in HPI and below Exam Const: General: cooperative, comfortable and no acute distress HENMT: General nose exam: Normal nares present Eyes: General: appearance normal, both eyes and all related structures Neck: Neck: supple Resp: Auscultation: clear to auscultation bilaterally Cardio: Rate: regular rate Rhythm: regular rhythm GI: Inspection: normal to inspection and distended GI Palp: Yes abdominal tenderness, Yes Soft to palpation, Yes Tenderness to palpation present (GI), No Guarding due to palpation present (GI) and No Rigid due to palpation Skin: General skin exam: normal color Extrem: General: normal to inspection Psych: Mental Status: mental status grossly normal Objective Data Vital Signs Vital Signs: Vital Signs - 24 hr 10/03/21 20:00 10/03/21 20:00 10/03/21 20:37 Temperature 97.5 F L 97.5 F L Pulse Rate 86 86 Respiratory Rate 16 16 Blood Pressure 151/82 H 151/82 H Pulse Oximetry 94 94 Oxygen Delivery Room Air 10/03/21 20:00 10/04/21 00:00 10/04/21 00:49 Temperature 97.2 F L Pulse Rate 88 74 76 Respiratory Rate 18 Blood Pressure 130/62 Pulse Oximetry 96 Oxygen Delivery 10/04/21 04:00 10/04/21 04:35 10/04/21 08:29 Temperature 96.6 F L Pulse Rate 84 72 Respiratory Rate 18 Blood Pressure 134/69 Pulse Oximetry 96 Oxygen Delivery Room Air 10/04/21 08:00 10/04/21 10:00 10/04/21 11:41 Temperature 97.8 F Pulse Rate 71 70 86 Respiratory Rate 16 Blood Pressure 150/61 H Pulse Oximetry 93 Oxygen Delivery 10/04/21 14:00 Temperature 96.8 F L Pulse Rate 81 Respiratory Rate 16 Blood Pressure 145/76 H Pulse Oximetry 95 Oxygen Delivery Intake/Output Intake/Output: Intake & Output 10/01/21 10/02/21 10/03/21 10/04/21 23:59 23:59 23:59 23:59 Intake Total 3540 2750 3810 1890 Output Total 800 Balance 2740 2750 3810 1890 Meds/Results Medications: Active Medications Generic Name Dose Route Start Last Admin Trade Name Freq PRN Reason Stop Dose Admin Atenolol 50 mg 10/03/21 13:45 10/04/21 11:41 Atenolol 50 Mg Tablet PO 50 mg DAILY BRENNAN Administration Hydralazine HCl 10 mg 10/02/21 11:17 10/03/21 12:01 Hydralazine Hcl 20 Mg/Ml Vial IV PUSH 10 mg Q8H PRN Administration Systolic BP >170 Hydrochlorothiazide 25 mg 10/03/21 13:45 10/04/21 11:41 Hydrochlorothiazide 25 Mg Tablet PO 25 mg DAILY BRENNAN Administration Hydromorphone HCl 1 mg 10/02/21 08:01 10/04/21 13:56 Hydromorphone Hcl Inj (*Crx) 1 Mg/Ml Syr I
[2021-10-04] MEDS: FUROSEMIDE INJ 40 MG/4 ML VIAL 20 MG IV PUSH (17:09)
[2021-10-05] VITALS (7 sets, daily range): BP systolic 127–145; BP diastolic 55–66; PULSE 64–73; RESP 16–20; TEMP 35.6–36.9; O2SAT 91–94
[2021-10-05] MEDS: CENTRAL LINE FLUSH 10 ML IV PUSH ×4 (00:08→21:01)
[2021-10-05] MEDS: HYDROmorphone HCL INJ (*CRX) 1 MG/ML SYR IV PUSH ×2 (02:29→08:02)
[2021-10-05 05:14] LABS: Hematocrit 35.7 % (37.0-47.0); Hemoglobin 12.3 g/dL (12.0-15.0); Mean Corpuscular HGB Conc 34.5 g/dl (32-36); Mean Corpuscular Hemoglobin 30.3 pg (26-34); Mean Corpuscular Volume 87.9 fl (80-100); Mean Platelet Volume 10.1 fl (7.4-10.4); Platelet Count Result 263 k/mm3 (150-375); Red Blood Count 4.06 M/mm3 (4.2-5.4); Red Cell Distribution Width 13.8 % (11.5-14.5); White Blood Count 23.5 K/mm3 (4.5-10.0)
[2021-10-05] MEDS: LEVOTHYROXINE SODIUM INJ 100 MCG/5 ML VIAL 56 MCG IV PUSH (05:16)
[2021-10-05] MEDS: lisinopriL 20 MG TABLET PO (08:02)
[2021-10-05] MEDS: atenoloL 50 MG TABLET PO (08:02)
[2021-10-05] MEDS: PANTOPRAZOLE SODIUM IV 40 MG VIAL IV PUSH (08:03)
--- NOTE | 2021-10-05 08:21 | PM.PNGS ---
Progress Note: A&P Assessment and Plan (1) Acute pancreatitis: Qualifiers: Acute pancreatitis complication: unspecified Pancreatitis type: unspecified pancreatitis type Qualified Code(s): K85.90 - Acute pancreatitis without necrosis or infection, unspecified Code(s): K85.90 - Acute pancreatitis without necrosis or infection, unspecified Status: Acute Assessment and Plan: exam benign, labs improved, still c leukocytosis likely inflammatory reaction, will try low fat diet (2) Cholelithiasis: Code(s): K80.20 - Calculus of gallbladder without cholecystitis without obstruction Status: Acute Assessment and Plan: will need interval cholecystectomy as outpt, would wait longer interval given severity of pancreatitis Subjective Subjective Date/Time Seen: 10/05/21 08:21 feels much improved, pain is minimal at this point, anderson clears Review of Systems Review of Systems: All systems reviewed & are unremarkable except as noted in HPI and below Exam Const: General: cooperative, comfortable and no acute distress Resp: Auscultation: clear to auscultation bilaterally Cardio: Rate: regular rate Rhythm: regular rhythm GI: Inspection: normal to inspection and non-distended GI Palp: No abdominal tenderness and Yes Soft to palpation Objective Data Vital Signs Vital Signs: Vital Signs - 24 hr 10/04/21 08:29 10/04/21 10:00 10/04/21 11:41 Temperature 36.6 C Pulse Rate 70 86 Respiratory Rate 16 Blood Pressure 150/61 H Pulse Oximetry 93 Oxygen Delivery Room Air 10/04/21 14:00 10/04/21 17:47 10/04/21 17:58 Temperature 36.0 C L 36.2 C L Pulse Rate 81 72 Respiratory Rate 16 16 Blood Pressure 145/76 H 144/65 H Pulse Oximetry 95 92 94 Oxygen Delivery Room Air 10/04/21 19:42 10/04/21 20:00 10/05/21 00:00 Temperature 35.9 C L 35.6 C L Pulse Rate 64 64 66 Respiratory Rate 20 20 20 Blood Pressure 137/68 128/64 Pulse Oximetry 92 92 93 Oxygen Delivery Room Air 10/05/21 04:00 10/05/21 07:30 10/05/21 08:02 Temperature 36.2 C L Pulse Rate 73 68 Respiratory Rate 20 Blood Pressure 145/55 H Pulse Oximetry 91 Oxygen Delivery Room Air Intake/Output Intake/Output: Intake & Output 10/02/21 10/03/21 10/04/21 10/05/21 23:59 23:59 23:59 23:59 Intake Total 2750 3810 2920 1130 Output Total 650 1900 Balance 2750 3810 8780 -033 Meds/Results Medications: Active Medications Generic Name Dose Route Start Last Admin Trade Name Freq PRN Reason Stop Dose Admin Atenolol 50 mg 10/03/21 13:45 10/05/21 08:02 Atenolol 50 Mg Tablet PO 50 mg DAILY BRENNAN Administration Hydralazine HCl 10 mg 10/02/21 11:17 10/03/21 12:01 Hydralazine Hcl 20 Mg/Ml Vial IV PUSH 10 mg Q8H PRN Administration Systolic BP >170 Hydrochlorothiazide 25 mg 10/03/21 13:45 10/04/21 11:41 Hydrochlorothiazide 25 Mg Tablet PO 25 mg DAILY BRENNAN Administration Hydromorphone HCl 1 mg 10/02/21 08:01 10/05/21 08:02 Hydromorphone Hcl Inj (*Crx) 1 Mg/Ml Syr IV PUSH 1 mg Q3H PRN Administration Pain Rated 7-10 Piperacillin/Tazobactam/Dextrose 3.375 gm in 50 mls @ 100 mls/hr 09/30/21 10:00 10/05/21 05:40 Zosyn 3.375 Gm/D5w 50ml Pm IVPB Infused Q6H BRENNAN Infusion Vancomycin HCl 1,750 mg in 500 mls @ 250 mls/hr 10/04/21 17:00 10/05/21 07:10 Vancomycin 1,750 Mg/D5w 500 Ml IVPB Infused Q12H BRENNAN Infusion Levothyroxine Sodium 56 mcg 09/30/21 06:30 10/05/21 05:16 Levothyroxine Sodium Inj 100 Mcg/5 Ml Vial IV PUSH 56 mcg DAILY@0630 BRENNAN Administration Lisinopril 20 mg 10/03/21 13:45 10/05/21 08:02 Lisinopril 20 Mg Tablet PO 20 mg DAILY BRENNAN Administration Metoprolol Tartrate 5 mg 10/01/21 08:37 Metoprolol Tartrate Inj 5 Mg/5 Ml Vial IV PUSH Q6HR PRN Tachycardia Ondansetron HCl 4 mg 09/29/21 18:15 10/02/21 04:10 Ondansetron Inj 4 Mg/2 Ml Vial IV PUSH 4 mg Q4H PRN Admini
[2021-10-05 09:53] LABS: Alanine Aminotransferase 22 U/L (6-35); Albumin Level 2.6 g/dL (3.5-5.1); Alkaline Phosphatase 64 U/L (38-126); Anion Gap 3 mmol/L (8-16); Aspartate Amino Transferase 23 U/L (14-36); Bilirubin,Total 0.7 mg/dL (0.2-1.3); Blood Urea Nitrogen 15 mg/dL (7-17); Calcium 6.3 mg/dL (8.4-10.2); Carbon Dioxide 30 mmol/L (22-30); Chloride 95 mmol/L (98-107); Estimated CRCL calculation 74 ml/min; Estimated Glomerular Filt Rate > 60; Glucose 206 mg/dL (65-110); Lipase 367 U/L (23-300); Sodium 128 mmol/L (137-145)
--- NOTE | 2021-10-05 11:31 | PCNFU ---
Nutrition Follow-Up Complete: Inadequate oral intake related to nausea and vomitting as evidenced by poor oral intake. Goal: Increased oral intake to 75% of meals with Ensure Compact BID (220kcal, 9gm pro each) - Pt is progressing towards goal, but not meeting it. Continue current goal. Pt current nutrition is low fat. Last recorded weight is 118.3 kg, up 3.8kg from initial meeting on 10/04. Bowel Motility: +BM 10/03 Labs Reviewed: Hct 35.7, Alb 2.6, Na 128, K 3.0, Glu 206, Ca 6.3 Meds Noted: Zofran Skin: WNL Additional Notes: Pt reports eating 50% of her meal during breakfast and states she has improved hunger cues during meals. orders for Ensure Compact BID (220kcal, 9gm pro each) with meals. Monitor oral intake %, labs, changes in wt every 5 days.
[2021-10-05] MEDS: HYDROcodone/acetaminophen (*CRX) 5-325 MG TABLET 1 TAB PO ×3 (12:10→21:01)
[2021-10-05] MEDS: POTASSIUM CHLORIDE 20 MEQ TABLET PO (12:11)
[2021-10-05] MEDS: FUROSEMIDE INJ 40 MG/4 ML VIAL IV PUSH (12:11)
[2021-10-05] MEDS: POTASSIUM CHLORIDE 20 MEQ TABLET 40 MEQ PO (12:11)
--- NOTE | 2021-10-05 13:42 | PCNSR ---
On 10/05/21, the student,Bhavya Richardson, provided care and completed [facility] documentation on this patient. I have reviewed the student's documentation and agree with the findings.
--- NOTE | 2021-10-05 14:12 | P.PNIM_ITS ---
Progress Note: A&P Assessment and Plan (1) Acute pancreatitis: Qualifiers: Acute pancreatitis complication: unspecified Pancreatitis type: unspecified pancreatitis type Qualified Code(s): K85.90 - Acute pancreatitis without necrosis or infection, unspecified Code(s): K85.90 - Acute pancreatitis without necrosis or infection, unspecified Status: Acute Assessment and Plan: Patient presented with abdominal pain. CT showed acute interstitial pancreatitis and lipase elevated to >[address]171 * Suspect gallstone pancreatitis with evidence of cholelithiasis on abdominal ultrasound and elevated LFTs * Repeat CT abdomen/pelvis on 10/01 showed worsened pancreatitis with fat strand ing and free fluid in the retroperitoneum * 10/02 consult to GI given MRI findings of interstitial and necrotic component with small nonloculated acute peripancreatic fluid collection. Appreciate GI recommendations * She has been rehydrated. IV fluids discontinued 10/03 as patient became edematous. Monitor volume status. * Analgesics available as needed * Advanced to low-fat diet * Lipase 367 today (2) Cholelithiasis: Code(s): K80.20 - Calculus of gallbladder without cholecystitis without obstruction Status: Acute Assessment and Plan: Abdominal ultrasound revealed pancreatitis with cholelithiasis, normal size common bile duct * No evidence of acute cholecystitis * Appreciate general surgery consultation * Will need cholecystectomy upon improvement of pancreatitis, per surgery will be outpatient to allow for resolution of pancreatitis (3) Sepsis: Code(s): A41.9 - Sepsis, unspecified organism Status: Acute Assessment and Plan: Patient septic with marked leukocytosis, tachycardia, tachypnea, lactic acidosis. * Secondary to necrotic pancreatitis * Blood cultures pending, negative to date after >48 hours * Will discontinue IV Vancomycin. Continue Zosyn. Discussed case with ID PharmD * [place] [id number] but overall downward trend. Monitor CBC * Tachycardia and tachypnea resolved. Remains afebrile. * Lactic acid levels normalized * Monitor vital signs, intake and output closely (4) Elevated LFTs: Code(s): R79.89 - Other specified abnormal findings of blood chemistry Status: Acute Assessment and Plan: Resolved. 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 Last BP 138/66 * Continue atenolol 50 mg daily and lisinopril * Hydralazine available as needed for systolic BP >170 (8) Hyponatremia: Code(s): E87.1 -
--- NOTE | 2021-10-05 14:12 | PM.IMPN ---
Progress Note: A&P Assessment and Plan (1) Acute pancreatitis: Qualifiers: Acute pancreatitis complication: unspecified Pancreatitis type: unspecified pancreatitis type Qualified Code(s): K85.90 - Acute pancreatitis without necrosis or infection, unspecified Code(s): K85.90 - Acute pancreatitis without necrosis or infection, unspecified Status: Acute Assessment and Plan: Patient presented with abdominal pain. CT showed acute interstitial pancreatitis and lipase elevated to >[address]643 Suspect gallstone pancreatitis with evidence of cholelithiasis on abdominal ultrasound and elevated LFTs Repeat CT abdomen/pelvis on 10/01 showed worsened pancreatitis with fat stranding and free fluid in the retroperitoneum 10/02 consult to GI given MRI findings of interstitial and necrotic component with small nonloculated acute peripancreatic fluid collection. Appreciate GI recommendations She has been rehydrated. IV fluids discontinued 10/03 as patient became edematous. Monitor volume status. Analgesics available as needed Advanced to low-fat diet Lipase 367 today (2) Cholelithiasis: Code(s): K80.20 - Calculus of gallbladder without cholecystitis without obstruction Status: Acute Assessment and Plan: Abdominal ultrasound revealed pancreatitis with cholelithiasis, normal size common bile duct No evidence of acute cholecystitis Appreciate general surgery consultation Will need cholecystectomy upon improvement of pancreatitis, per surgery will be outpatient to allow for resolution of pancreatitis (3) Sepsis: Code(s): A41.9 - Sepsis, unspecified organism Status: Acute Assessment and Plan: Patient septic with marked leukocytosis, tachycardia, tachypnea, lactic acidosis. Secondary to necrotic pancreatitis Blood cultures pending, negative to date after >48 hours Will discontinue IV Vancomycin. Continue Zosyn. Discussed case [place] ID [place] [address] but overall downward trend. Monitor CBC Tachycardia and tachypnea resolved. Remains afebrile. Lactic acid levels normalized Monitor vital signs, intake and output closely (4) Elevated LFTs: Code(s): R79.89 - Other specified abnormal findings of blood chemistry Status: Acute Assessment and Plan: Resolved. 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 Last BP 138/66 Continue atenolol 50 mg daily and lisinopril Hydralazine available as needed for systolic BP >170 (8) Hyponatremia: Code(s): E87.1 - Hypo-osmolality and hyponatremia Status: Acute Assessment and Plan: Sodium running low, most likely due to hypervolemic hyponatremia Slight improvement in sodium to 128 today Continue with Lasix. Administer 40 mg IV 1 time Recheck sodium this afternoon Continue to monitor sodium levels closely Patient is asymptomatic (9) Electrolyte abnormality: Code(s): E87.8 - Other disorders of electrolyte and fluid balance,
[2021-10-05] MEDS: CENTRAL LINE FLUSH 20 ML IV PUSH (14:21)
[2021-10-05 14:59] LABS: Magnesium 2.2 mg/dL (1.6-2.3); Potassium 3.3 mmol/L (3.4-5.0); Sodium 127 mmol/L (137-145)
--- NOTE | 2021-10-05 15:18 | WPDGIPROGNO ---
Progress Note: A&P Assessment and Plan (1) Acute pancreatitis: Qualifiers: Acute pancreatitis complication: unspecified Pancreatitis type: unspecified pancreatitis type Qualified Code(s): K85.90 - Acute pancreatitis without necrosis or infection, unspecified Code(s): K85.90 - Acute pancreatitis without necrosis or infection, unspecified Status: Acute Assessment and Plan: feeling better, no more nausea but still some pain low fat diet and probably go home tomorrow (2) Cholelithiasis: Code(s): K80.20 - Calculus of gallbladder without cholecystitis without obstruction Status: Acute Assessment and Plan: will need interval cholecystectomy, probably as outpatient (3) Elevated LFTs: Code(s): R79.89 - Other specified abnormal findings of blood chemistry Status: Acute Assessment and Plan: already trending down (4) Upper abdominal pain: Code(s): R10.10 - Upper abdominal pain, unspecified Status: Acute Assessment and Plan: improved (5) Hyponatremia: Code(s): E87.1 - Hypo-osmolality and hyponatremia Status: Acute Assessment and Plan: monitor Subjective Date/time seen: 10/05/21 12:18 feeling better, tolerating liquid diet, less pain Review of Systems Constitutional: Constitutional: Denies headache(s) and Denies weakness Eyes: Eyes: Denies blurry vision ENT: Reports Normal hearing present, Denies headache(s) and Denies neck pain Cardiovascular: Cardiovascular: Denies chest pain and Denies dyspnea Respiratory: Respiratory: Denies dyspnea Gastrointestinal: Gastrointestinal: Reports no additional gastrointestinal complaints Genitourinary: Genitourinary: Denies dysuria Musculoskeletal: Musculoskeletal: Denies neck pain Integumentary/Breasts: Skin/Breast: Denies dry skin Neurologic: Reports Normal hearing present, Denies headache(s) and Denies weakness Psychiatric: Psychiatric: Denies anxiety Endocrine: Endocrine: Denies change in body appearance Hematologic/Lymphatic: Hematologic/Lymphatic: Denies easy bleeding Allergic/Immunologic: Allergic/Immunologic: Denies urticaria Exam Const: General: cooperative, comfortable and no acute distress HENMT: General nose exam: Normal nares present Eyes: General: appearance normal, both eyes and all related structures Neck: Neck: supple Resp: Auscultation: clear to auscultation bilaterally Cardio: Rate: regular rate Rhythm: regular rhythm GI: Inspection: normal to inspection and distended GI Palp: Yes Soft to palpation, No Guarding due to palpation present (GI) and No Rigid due to palpation Other: only minimal ttp, much better Skin: General skin exam: normal color Extrem: General: pedal edema Psych: Mental Status: mental status grossly normal Objective Data Vital Signs Vital Signs: Vital Signs - 24 hr 10/04/21 17:47 10/04/21 17:58 10/04/21 19:42 Temperature 97.2 F L 96.7 F L Pulse Rate 72 64 Respiratory Rate 16 20 Blood Pressure 144/65 H 137/68 Pulse Oximetry 92 94 92 Oxygen Delivery Room Air 10/04/21 20:00 10/05/21 00:00 10/05/21 04:00 Temperature 96.1 F L 97.2 F L Pulse Rate 64 66 73 Respiratory Rate 20 20 20 Blood Pressure 128/64 145/55 H Pulse Oximetry 92 93 91 Oxygen Delivery Room Air 10/05/21 07:30 10/05/21 08:02 10/05/21 10:32 Temperature 97.8 F Pulse Rate 68 64 Respiratory Rate 18 Blood Pressure 138/66 Pulse Oximetry 92 Oxygen Delivery Room Air 10/05/21 14:52 Temperature 97.7 F Pulse Rate 72 Respiratory Rate 18 Blood Pressure 136/63 Pulse Oximetry 92 Oxygen Delivery Intake/Output Intake/Output: Intake & Output 10/02/21 10/03/21 10/04/21 10/05/21 23:59 23:59 23:59 23:59 Intake Total 2750 3810 2920 1300 Output Total 650 1900 Balance 2750 3810 2270 -600 Meds/Results Medications: Active Medications Generic Name Dose Route Start Last Admin Trade Name Freq
[2021-10-05] MEDS: POTASSIUM CHLORIDE 20 MEQ TABLET.ER PO (16:56)
[2021-10-06] MEDS: HYDROcodone/acetaminophen (*CRX) 5-325 MG TABLET 1 TAB PO ×6 (00:51→23:04)
[2021-10-06] MEDS: CENTRAL LINE FLUSH 10 ML IV PUSH ×3 (05:01→21:18)
[2021-10-06] MEDS: LEVOTHYROXINE SODIUM INJ 100 MCG/5 ML VIAL 56 MCG IV PUSH (05:02)
[2021-10-06 05:58] LABS: Hematocrit 35.8 % (37.0-47.0); Hemoglobin 11.8 g/dL (12.0-15.0); Mean Corpuscular Hemoglobin 29.6 pg (26-34); Mean Corpuscular Volume 89.9 fl (80-100); Mean Platelet Volume 10.4 fl (7.4-10.4); Platelet Count Result 275 k/mm3 (150-375); Red Blood Count 3.98 M/mm3 (4.2-5.4); Red Cell Distribution Width 14.1 % (11.5-14.5); White Blood Count 19.3 K/mm3 (4.5-10.0)
[2021-10-06 06:00] VITALS: BP 132/61; PULSE 68; RESP 16; TEMP 36.3; O2SAT 94
[2021-10-06 06:31] LABS: Alanine Aminotransferase 20 U/L (6-35); Albumin Level 2.8 g/dL (3.5-5.1); Alkaline Phosphatase 64 U/L (38-126); Anion Gap -1 mmol/L (8-16); Aspartate Amino Transferase 29 U/L (14-36); Bilirubin,Total 0.7 mg/dL (0.2-1.3); Blood Urea Nitrogen 19 mg/dL (7-17); Calcium 6.9 mg/dL (8.4-10.2); Carbon Dioxide 33 mmol/L (22-30); Chloride 97 mmol/L (98-107); Estimated CRCL calculation 67 ml/min; Estimated Glomerular Filt Rate 56; Glucose 196 mg/dL (65-110); Lipase 370 U/L (23-300); Magnesium 2.1 mg/dL (1.6-2.3); Potassium 4.7 mmol/L (3.4-5.0); Sodium 129 mmol/L (137-145)
[2021-10-06 08:45] VITALS: PULSE 72
[2021-10-06] MEDS: lisinopriL 20 MG TABLET PO (08:45)
[2021-10-06] MEDS: atenoloL 50 MG TABLET PO (08:45)
[2021-10-06] MEDS: PANTOPRAZOLE SODIUM IV 40 MG VIAL IV PUSH (08:45)
[2021-10-06 09:22] LABS: Basophils Absolute Auto 0.2 K/mm3 (0.0-0.1); Basophils Percent Auto 0.8 % (0.2-1.2); Eosinophils Absolute Auto 0.3 K/mm3 (0-0.3); Eosinophils Percent Auto 1.4 % (0-4.4); Hematocrit 36.4 % (37.0-47.0); Immature Granulocyte Absolute 0.68 K/mm3 (0.00-0.031); Immature Granulocyte Percent A 3.3 % (0-0.5); Lymphocytes Absolute Auto 0.84 K/mm3 (0.9-3.2); Lymphocytes Percent Auto 4.1 % (18.3-44.2); Mean Corpuscular Hemoglobin 29.4 pg (26-34); Mean Corpuscular Volume 89.2 fl (80-100); Mean Platelet Volume 10.3 fl (7.4-10.4); Monocytes Absolute Auto 1.9 K/mm3 (0.1-0.6); Monocytes Percent Auto 9.1 % (2.6-8.5); Neutrophils Absolute Auto 16.7 K/mm3 (1.3-6.7); Neutrophils Percent Auto 81.3 % (45.5-73.1); Platelet Count Result 293 k/mm3 (150-375); Red Blood Count 4.08 M/mm3 (4.2-5.4); Red Cell Distribution Width 14.2 % (11.5-14.5); White Blood Count 20.5 K/mm3 (4.5-10.0)
[2021-10-06] MEDS: FUROSEMIDE INJ 40 MG/4 ML VIAL 20 MG IV PUSH ×2 (10:24→16:32)
[2021-10-06] MEDS: POTASSIUM CHLORIDE 20 MEQ TABLET.ER PO ×2 (10:24→16:32)
--- NOTE | 2021-10-06 13:48 | WPDGIPROGNO ---
Progress Note: A&P Assessment and Plan (1) Acute pancreatitis: Qualifiers: Acute pancreatitis complication: unspecified Pancreatitis type: unspecified pancreatitis type Qualified Code(s): K85.90 - Acute pancreatitis without necrosis or infection, unspecified Code(s): K85.90 - Acute pancreatitis without necrosis or infection, unspecified Status: Acute Assessment and Plan: tolerating low fat diet home soon normalization of liver enzymes (2) Cholelithiasis: Code(s): K80.20 - Calculus of gallbladder without cholecystitis without obstruction Status: Acute Assessment and Plan: will need interval cholecystectomy as outpatient, timing per surgery (3) Elevated LFTs: Code(s): R79.89 - Other specified abnormal findings of blood chemistry Status: Acute Assessment and Plan: back down to normal (4) Upper abdominal pain: Code(s): R10.10 - Upper abdominal pain, unspecified Status: Acute Assessment and Plan: improved, requiring less pain meds (5) Hyponatremia: Code(s): E87.1 - Hypo-osmolality and hyponatremia Status: Acute Assessment and Plan: stable, she received lasix Subjective Date/time seen: 10/06/21 13:48 better and tolerating low fat diet, requiring less pain meds. Review of Systems Review of Systems: All systems reviewed & are unremarkable except as noted in HPI and below Exam Const: General: cooperative, comfortable and no acute distress HENMT: General nose exam: Normal nares present Eyes: General: appearance normal, both eyes and all related structures Neck: Neck: supple Resp: Auscultation: clear to auscultation bilaterally Cardio: Rate: regular rate Rhythm: regular rhythm GI: Inspection: normal to inspection and distended GI Palp: Yes Soft to palpation, No Guarding due to palpation present (GI) and No Rigid due to palpation Other: only minimal ttp, much better Skin: General skin exam: normal color Extrem: General: pedal edema Psych: Mental Status: mental status grossly normal Objective Data Vital Signs Vital Signs: Vital Signs - 24 hr 10/05/21 14:52 10/05/21 20:00 10/05/21 22:00 Temperature 97.7 F 98.5 F Pulse Rate 72 72 71 Respiratory Rate 18 18 16 Blood Pressure 136/63 127/58 L Pulse Oximetry 92 92 94 Oxygen Delivery Room Air 10/06/21 06:00 10/06/21 08:45 10/06/21 09:00 Temperature 97.3 F L Pulse Rate 68 72 Respiratory Rate 16 Blood Pressure 132/61 Pulse Oximetry 94 Oxygen Delivery Room Air Intake/Output Intake/Output: Intake & Output 10/03/21 10/04/21 10/05/21 10/06/21 23:59 23:59 23:59 23:59 Intake Total 3810 2920 1986 960 Output Total 650 2800 Balance 3810 2270 -814 960 Meds/Results Medications: Active Medications Generic Name Dose Route Start Last Admin Trade Name Freq PRN Reason Stop Dose Admin Hydrocodone Bitart/Acetaminophen 1 tab 10/05/21 08:42 10/06/21 10:24 Hydrocodone/Acetaminophen (*Crx) 5-325 Mg Tablet PO 1 tab Q4H PRN Administration Pain Rated 4-6 Atenolol 50 mg 10/03/21 13:45 10/06/21 08:45 Atenolol 50 Mg Tablet PO 50 mg DAILY BRENNAN Administration Hydralazine HCl 10 mg 10/02/21 11:17 10/03/21 12:01 Hydralazine Hcl 20 Mg/Ml Vial IV PUSH 10 mg Q8H PRN Administration Systolic BP >170 Hydrochlorothiazide 25 mg 10/03/21 13:45 10/04/21 11:41 Hydrochlorothiazide 25 Mg Tablet PO 25 mg DAILY BRENNAN Administration Hydromorphone HCl 1 mg 10/02/21 08:01 10/05/21 08:02 Hydromorphone Hcl Inj (*Crx) 1 Mg/Ml Syr IV PUSH 1 mg Q3H PRN Administration Pain Rated 7-10 Piperacillin/Tazobactam/Dextrose 3.375 gm in 50 mls @ 100 mls/hr 09/30/21 10:00 10/06/21 09:30 Zosyn 3.375 Gm/D5w 50ml Pm IVPB Infused Q6H BRENNAN Infusion Levothyroxine Sodium 56 mcg 09/30/21 06:30 10/06/21 05:02 Levothyroxine Sodium Inj 100 Mcg/5 Ml Vial IV PUSH 56 mcg DAILY@0630 S
[2021-10-06 14:00] VITALS: BP 140/67; PULSE 77; RESP 16; TEMP 36.9; O2SAT 91
[2021-10-06 14:37] LABS: Sodium 130 mmol/L (137-145)
--- NOTE | 2021-10-06 15:17 | P.PNIM_ITS ---
Progress Note: A&P Assessment and Plan (1) Acute pancreatitis: Qualifiers: Acute pancreatitis complication: unspecified Pancreatitis type: unspecified pancreatitis type Qualified Code(s): K85.90 - Acute pancreatitis without necrosis or infection, unspecified Code(s): K85.90 - Acute pancreatitis without necrosis or infection, unspecified Status: Acute Assessment and Plan: Patient presented with abdominal pain. CT showed acute interstitial pancreatitis and lipase elevated to >52001 * Suspect gallstone pancreatitis with evidence of cholelithiasis on abdominal ultrasound and elevated LFTs * Repeat CT abdomen/pelvis on 10/01 showed worsened pancreatitis with fat strand ing and free fluid in the retroperitoneum * 10/02 consult to GI given MRI findings of interstitial and necrotic component with small nonloculated acute peripancreatic fluid collection. Appreciate GI recommendations * She has been rehydrated. IV fluids discontinued 10/03 as patient became edematous. Monitor volume status. * Analgesics available as needed * Continue with low-fat diet. Tolerating this well * Lipase 370 today (2) Cholelithiasis: Code(s): K80.20 - Calculus of gallbladder without cholecystitis without obstruction Status: Acute Assessment and Plan: Abdominal ultrasound revealed pancreatitis with cholelithiasis, normal size common bile duct * No evidence of acute cholecystitis * Appreciate general surgery consultation * Will need cholecystectomy upon improvement of pancreatitis, per surgery will be outpatient to allow for resolution of pancreatitis (3) Sepsis: Code(s): A41.9 - Sepsis, unspecified organism Status: Acute Assessment and Plan: Patient septic with marked leukocytosis, tachycardia, tachypnea, lactic acidosis. * Secondary to necrotic pancreatitis * Blood cultures pending, negative to date after >72 hours * Continue IV Zosyn. Vancomycin discontinued 10/05. Discussed case with ID PharmD * WBC still markedly elevated, however with overall downward trend. Predominant neutrophilia * Tachycardia and tachypnea resolved. Remains afebrile. * Lactic acid levels normalized * Monitor vital signs, intake and output closely (4) Elevated LFTs: Code(s): R79.89 - Other specified abnormal findings of blood chemistry Status: Acute Assessment and Plan: Resolved. 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 Last BP 140/67 * Continue atenolol 50 mg daily and lisinopril * Hydralazine available as needed for systolic BP >170
--- NOTE | 2021-10-06 15:17 | PM.IMPN ---
Progress Note: A&P Assessment and Plan (1) Acute pancreatitis: Qualifiers: Acute pancreatitis complication: unspecified Pancreatitis type: unspecified pancreatitis type Qualified Code(s): K85.90 - Acute pancreatitis without necrosis or infection, unspecified Code(s): K85.90 - Acute pancreatitis without necrosis or infection, unspecified Status: Acute Assessment and Plan: Patient presented with abdominal pain. CT showed acute interstitial pancreatitis and lipase elevated to >15927 Suspect gallstone pancreatitis with evidence of cholelithiasis on abdominal ultrasound and elevated LFTs Repeat CT abdomen/pelvis on 10/01 showed worsened pancreatitis with fat stranding and free fluid in the retroperitoneum 10/02 consult to GI given MRI findings of interstitial and necrotic component with small nonloculated acute peripancreatic fluid collection. Appreciate GI recommendations She has been rehydrated. IV fluids discontinued 10/03 as patient became edematous. Monitor volume status. Analgesics available as needed Continue with low-fat diet. Tolerating this well Lipase 370 today (2) Cholelithiasis: Code(s): K80.20 - Calculus of gallbladder without cholecystitis without obstruction Status: Acute Assessment and Plan: Abdominal ultrasound revealed pancreatitis with cholelithiasis, normal size common bile duct No evidence of acute cholecystitis Appreciate general surgery consultation Will need cholecystectomy upon improvement of pancreatitis, per surgery will be outpatient to allow for resolution of pancreatitis (3) Sepsis: Code(s): A41.9 - Sepsis, unspecified organism Status: Acute Assessment and Plan: Patient septic with marked leukocytosis, tachycardia, tachypnea, lactic acidosis. Secondary to necrotic pancreatitis Blood cultures pending, negative to date after >72 hours Continue IV Zosyn. Vancomycin discontinued 10/05. Discussed case with ID PharmD WBC still markedly elevated, however with overall downward trend. Predominant neutrophilia Tachycardia and tachypnea resolved. Remains afebrile. Lactic acid levels normalized Monitor vital signs, intake and output closely (4) Elevated LFTs: Code(s): R79.89 - Other specified abnormal findings of blood chemistry Status: Acute Assessment and Plan: Resolved. 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 Last BP 140/67 Continue atenolol 50 mg daily and lisinopril Hydralazine available as needed for systolic BP >170 (8) Hyponatremia: Code(s): E87.1 - Hypo-osmolality and hyponatremia Status: Acute Assessment and Plan: Sodium was low, most likely due to hypervolemic hyponatremia Improved with diuresis. Sodium 130 today Continue with Lasix. 20 mg IV BID Continue to monitor sodium levels closely Patient is asymptomatic (9) Electrolyte abnormality: Code(s): E87.8 - Other disorders of electrolyte and fluid balance, not e
[2021-10-06 22:00] VITALS: BP 147/70; PULSE 79; RESP 18; TEMP 36.2; O2SAT 95
[2021-10-07] MEDS: HYDROcodone/acetaminophen (*CRX) 5-325 MG TABLET 1 TAB PO ×3 (03:10→13:13)
[2021-10-07] MEDS: CENTRAL LINE FLUSH 20 ML IV PUSH (03:56)
[2021-10-07 03:58] LABS: Basophils Absolute Auto 0.2 K/mm3 (0.0-0.1); Basophils Percent Auto 0.8 % (0.2-1.2); Eosinophils Absolute Auto 0.3 K/mm3 (0-0.3); Eosinophils Percent Auto 1.7 % (0-4.4); Hematocrit 35.1 % (37.0-47.0); Hemoglobin 11.6 g/dL (12.0-15.0); Immature Granulocyte Absolute 0.67 K/mm3 (0.00-0.031); Immature Granulocyte Percent A 3.3 % (0-0.5); Lymphocytes Absolute Auto 1.06 K/mm3 (0.9-3.2); Lymphocytes Percent Auto 5.2 % (18.3-44.2); Mean Corpuscular Hemoglobin 29.5 pg (26-34); Mean Corpuscular Volume 89.3 fl (80-100); Mean Platelet Volume 10.1 fl (7.4-10.4); Monocytes Absolute Auto 1.8 K/mm3 (0.1-0.6); Monocytes Percent Auto 8.8 % (2.6-8.5); Neutrophils Absolute Auto 16.2 K/mm3 (1.3-6.7); Neutrophils Percent Auto 80.2 % (45.5-73.1); Platelet Count Result 272 k/mm3 (150-375); Red Blood Count 3.93 M/mm3 (4.2-5.4); Red Cell Distribution Width 14.1 % (11.5-14.5); White Blood Count 20.2 K/mm3 (4.5-10.0)
[2021-10-07 04:07] LABS: Anion Gap 2 mmol/L (8-16); Blood Urea Nitrogen 17 mg/dL (7-17); Carbon Dioxide 33 mmol/L (22-30); Chloride 95 mmol/L (98-107); Estimated CRCL calculation 67 ml/min; Estimated Glomerular Filt Rate 56; Glucose 261 mg/dL (65-110); Potassium 3.9 mmol/L (3.4-5.0); Sodium 130 mmol/L (137-145)
[2021-10-07] MEDS: LEVOTHYROXINE SODIUM INJ 100 MCG/5 ML VIAL 56 MCG IV PUSH (05:42)
[2021-10-07] MEDS: CENTRAL LINE FLUSH 10 ML IV PUSH ×2 (05:43→12:22)
[2021-10-07 06:00] VITALS: BP 147/74; PULSE 65; RESP 16; TEMP 36.3; O2SAT 94
[2021-10-07 09:13] VITALS: BP 168/80; PULSE 80
[2021-10-07] MEDS: PANTOPRAZOLE SODIUM IV 40 MG VIAL IV PUSH (09:13)
[2021-10-07] MEDS: lisinopriL 20 MG TABLET PO (09:13)
[2021-10-07] MEDS: atenoloL 50 MG TABLET PO (09:13)
--- NOTE | 2021-10-07 13:08 | WPDGIPROGNO ---
Progress Note: A&P Assessment and Plan (1) Acute pancreatitis: Qualifiers: Acute pancreatitis complication: unspecified Pancreatitis type: unspecified pancreatitis type Qualified Code(s): K85.90 - Acute pancreatitis without necrosis or infection, unspecified Code(s): K85.90 - Acute pancreatitis without necrosis or infection, unspecified Status: Acute Assessment and Plan: tolerating low fat diet she can go home by GI standpoint normalization of liver enzymes (2) Cholelithiasis: Code(s): K80.20 - Calculus of gallbladder without cholecystitis without obstruction Status: Acute Assessment and Plan: will need interval cholecystectomy as outpatient, timing per surgery (3) Elevated LFTs: Code(s): R79.89 - Other specified abnormal findings of blood chemistry Status: Acute Assessment and Plan: back down to normal (4) Upper abdominal pain: Code(s): R10.10 - Upper abdominal pain, unspecified Status: Acute Assessment and Plan: improved, requiring less oral pain meds (5) Hyponatremia: Code(s): E87.1 - Hypo-osmolality and hyponatremia Status: Acute Assessment and Plan: stable (6) Leukocytosis: Code(s): D72.829 - Elevated white blood cell count, unspecified Status: Acute Assessment and Plan: probably related to pancreatitis she is on abx, ok to switch to oral Subjective Date/time seen: 10/07/21 13:08 Interval history: doing well and tolerating diet, she is feeling like going home Review of Systems Review of Systems: All systems reviewed & are unremarkable except as noted in HPI and below Exam Const: General: cooperative, comfortable and no acute distress HENMT: General nose exam: Normal nares present Eyes: General: appearance normal, both eyes and all related structures Neck: Neck: supple Resp: Auscultation: clear to auscultation bilaterally Cardio: Rate: regular rate Rhythm: regular rhythm GI: Inspection: normal to inspection and distended GI Palp: Yes Soft to palpation, No Guarding due to palpation present (GI) and No Rigid due to palpation Other: only minimal ttp, much better Skin: General skin exam: normal color Extrem: General: pedal edema Psych: Mental Status: mental status grossly normal Objective Data Vital Signs Vital Signs: Vital Signs - 24 hr 10/06/21 14:00 10/06/21 22:00 10/07/21 06:00 Temperature 98.4 F 97.1 F L 97.3 F L Pulse Rate 77 79 65 Respiratory Rate 16 18 16 Blood Pressure 140/67 147/70 H 147/74 H Pulse Oximetry 91 95 94 Oxygen Delivery 10/07/21 09:13 10/07/21 09:13 10/07/21 09:21 Temperature Pulse Rate 80 Respiratory Rate Blood Pressure 168/80 H Pulse Oximetry Oxygen Delivery Room Air Intake/Output Intake/Output: Intake & Output 10/04/21 10/05/21 10/06/21 10/07/21 23:59 23:59 23:59 23:59 Intake Total 2920 1986 2030 690 Output Total 650 2800 Balance 2270 -814 2030 690 Meds/Results Medications: Active Medications Generic Name Dose Route Start Last Admin Trade Name Freq PRN Reason Stop Dose Admin Hydrocodone Bitart/Acetaminophen 1 tab 10/05/21 08:42 10/07/21 09:14 Hydrocodone/Acetaminophen (*Crx) 5-325 Mg Tablet PO 1 tab Q4H PRN Administration Pain Rated 4-6 Atenolol 50 mg 10/03/21 13:45 10/07/21 09:13 Atenolol 50 Mg Tablet PO 50 mg DAILY BRENNAN Administration Hydralazine HCl 10 mg 10/02/21 11:17 10/03/21 12:01 Hydralazine Hcl 20 Mg/Ml Vial IV PUSH 10 mg Q8H PRN Administration Systolic BP >170 Hydrochlorothiazide 25 mg 10/03/21 13:45 10/04/21 11:41 Hydrochlorothiazide 25 Mg Tablet PO 25 mg DAILY BRENNAN Administration Hydromorphone HCl 1 mg 10/02/21 08:01 10/05/21 08:02 Hydromorphone Hcl Inj (*Crx) 1 Mg/Ml Syr IV PUSH 1 mg Q3H PRN Administration Pain Rated 7-10 Piperacillin/Tazobactam/Dextrose 3.375 gm in 50 mls @ 100 mls/hr
[2021-10-07 13:37] VITALS: BP 149/87; PULSE 74; RESP 16; TEMP 36.7; O2SAT 95
--- NOTE | 2021-10-07 15:33 | P.DS_ITS ---
DS: Admitting Diagnosis Discharge Date 10/07/2021 Admitting Diagnosis Pancreatitis DS: Discharge Diagnosis Discharge Diagnosis (1) Acute pancreatitis: Qualifiers: Acute pancreatitis complication: unspecified Pancreatitis type: unspecified pancreatitis type Qualified Code(s): K85.90 - Acute pancreatitis without necrosis or infection, unspecified Code(s): K85.90 - Acute pancreatitis without necrosis or infection, unspecified Status: Acute Assessment and Plan: Patient presented with abdominal pain. CT showed acute interstitial pancreatitis and lipase elevated to >85576 * Suspect gallstone pancreatitis with evidence of cholelithiasis on abdominal ultrasound and elevated LFTs * Repeat CT abdomen/pelvis on 10/01 showed worsened pancreatitis with fat stranding and free fluid in the retroperitoneum * 10/02 consult to GI given MRI findings of interstitial and necrotic component with small nonloculated acute peripancreatic fluid collection. * She has rehydrated. IV fluids discontinued 10/03 as patient became edematous. * Diet was very slowly advanced and she was eventually able to tolerate a low fat diet which will be continued * Lipase trended down and pain became improved. (2) Cholelithiasis: Code(s): K80.20 - Calculus of gallbladder without cholecystitis without obstruction Status: Acute Assessment and Plan: Abdominal ultrasound revealed pancreatitis with cholelithiasis, normal size common bile duct * No evidence of acute cholecystitis * Seen in consultation by general surgery * Will need outpatient cholecystectomy following resolution of pancreatitis. (3) Sepsis: Code(s): A41.9 - Sepsis, unspecified organism Status: Acute Assessment and Plan: Resolved. Patient septic with marked leukocytosis, tachycardia, tachypnea, lactic acidosis. * Secondary to necrotic pancreatitis * Blood cultures negative * Received IV Zosyn and Vancomycin. Vancomycin discontinued 10/05 following 48 hours of negative blood cultures. Discussed case with ID PharmD * Marked increase in WBC up to 37.3 with overall downward trend. WBC still elevated at time of discharge but significantly improved. Will repeat CBC with diff in 1 week. * Tachycardia and tachypnea resolved. Remained afebrile. * Lactic acid levels normalized (4) Elevated LFTs: Code(s): R79.89 - Other specified abnormal findings of blood chemistry Status: Acute Assessment and Plan: Resolved. 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
--- NOTE | 2021-10-07 15:33 | PM.DS ---
DS: Admitting Diagnosis Discharge Date 10/07/2021 Admitting Diagnosis Pancreatitis DS: Discharge Diagnosis Discharge Diagnosis (1) Acute pancreatitis: Qualifiers: Acute pancreatitis complication: unspecified Pancreatitis type: unspecified pancreatitis type Qualified Code(s): K85.90 - Acute pancreatitis without necrosis or infection, unspecified Code(s): K85.90 - Acute pancreatitis without necrosis or infection, unspecified Status: Acute Assessment and Plan: Patient presented with abdominal pain. CT showed acute interstitial pancreatitis and lipase elevated to >85029 Suspect gallstone pancreatitis with evidence of cholelithiasis on abdominal ultrasound and elevated LFTs Repeat CT abdomen/pelvis on 10/01 showed worsened pancreatitis with fat stranding and free fluid in the retroperitoneum 10/02 consult to GI given MRI findings of interstitial and necrotic component with small nonloculated acute peripancreatic fluid collection. She has rehydrated. IV fluids discontinued 10/03 as patient became edematous. Diet was very slowly advanced and she was eventually able to tolerate a low fat diet which will be continued Lipase trended down and pain became improved. (2) Cholelithiasis: Code(s): K80.20 - Calculus of gallbladder without cholecystitis without obstruction Status: Acute Assessment and Plan: Abdominal ultrasound revealed pancreatitis with cholelithiasis, normal size common bile duct No evidence of acute cholecystitis Seen in consultation by general surgery Will need outpatient cholecystectomy following resolution of pancreatitis. (3) Sepsis: Code(s): A41.9 - Sepsis, unspecified organism Status: Acute Assessment and Plan: Resolved. Patient septic with marked leukocytosis, tachycardia, tachypnea, lactic acidosis. Secondary to necrotic pancreatitis Blood cultures negative Received IV Zosyn and Vancomycin. Vancomycin discontinued 10/05 following 48 hours of negative blood cultures. Discussed case with ID PharmD Marked increase in WBC up to 37.3 with overall downward trend. WBC still elevated at time of discharge but significantly improved. Will repeat CBC with diff in 1 week. Tachycardia and tachypnea resolved. Remained afebrile. Lactic acid levels normalized (4) Elevated LFTs: Code(s): R79.89 - Other specified abnormal findings of blood chemistry Status: Acute Assessment and Plan: Resolved. 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, felt to be most likely benign, no enhancing tissue to suggest neoplasm Continue with outpatient follow-up (6) Hypothyroidism: Code(s): E03.9 - Hypothyroidism, unspecified Status: Acute Assessment and Plan: TSH is within normal limits Continue levothyroxine (7) Hypertension: Code(s): I10 - Essential (primary) hypertension Status: Acute Assessment and Plan: Blood pressures were monitored daily during admission Continue atenolol 50 mg daily and lisinopril (8) Hyponatremia: Code(s): E87.1 - Hypo-osmolality and hyponatremia Status: Acute Assessment and Plan: Secondary to to hypervolemic hyponatremia Remained asymptomatic Improved with diuresis Sodium 130 at time of discharge (9) Electrolyte abnormality: Code(s): E87.8 - Other disorders of electrolyte and fluid balance, not elsewhere classified Status: Acute Assessment and Plan: Hypokalemia: Resolved w
== END 2021-10-07 16:55 | disposition home or self-care (01) | DRG 871 ==
LOC: ANHED 17:59 → ANH3MED 19:07 → ANHIMU 10-01 12:36 → ANH2MED 10-02 16:24
PROVIDERS: Internal Medicine Gastroenterology; Nurse Practitioner Family; Physician Assistant; Admitting Provider Internal Medicine; Emergency Provider Emergency Medicine; PCP Family Medicine; Visit Provider Physician Assistant
DX: A41.9 Sepsis, unspecified organism (principal); K85.92 Acute pancreatitis with infected necrosis, unspecified; K80.20 Calculus of gallbladder without cholecystitis without obstruction; R79.89 Other specified abnormal findings of blood chemistry; E27.8 Other specified disorders of adrenal gland; E03.9 Hypothyroidism, unspecified; I10 Essential (primary) hypertension; Z87.891 Personal history of nicotine dependence; K76.0 Fatty (change of) liver, not elsewhere classified; E87.5 Hyperkalemia; E87.70 Fluid overload, unspecified; Z79.899 Other long term (current) drug therapy
CPT/HCPCS: 36415; 36569; 71046; 74176; 74183; 76705; 80048; 80053; 80074; 80202; 81001; 82040; 82150; 82570; 82948; 83036; 83605; 83690; 83735; 84132; 84295; 84300; 84443; 84478; 85025; 85027; 85610; 85730; 86140; 87040; 96361; 96374; 96375; 96376; 99285; A9270; A9577; C1751; C9113; G0378; J0360; J1170; J1940; J2405; J2543; J3370; J7030; J7040

== ENCOUNTER 2021-11-19 07:29 | Outpatient (CLI) | payer OTHER, SELFPAY ==
--- NOTE | ~2021-11-19 | CT_ITS ---
EXAMINATION: CT abdomen pelvis wo con DATE: 11/19/2021 08:00 INDICATION: Idiopathic acute pancreatitis with uninfected necrosis TECHNIQUE: Computed tomography (CT) of the abdomen and pelvis was performed without intravenous contr ast. Automated exposure control and iterative reconstruction technique were employed. Exam dose: 779 .93 mGy-cm total exam DLP. COMPARISON: 10/01/2021 CT abdomen pelvis 10/02/2021 MR abdomen FINDINGS: Approximately 3 x 3.8 cm cystic area with fluid attenuation involving the surgical junction of the uzair dy and tail of the pancreas, consistent with developing pseudocyst. There is considerable improvement of peripancreatic fat stranding and interval nearly complete resolution of peripancreatic fluid and fluid along the anterior pararenal fascia bilaterally as well as pericolic gutters since 10/01/2021. T here is mild perisplenic fluid. Multiple gallstones are noted. No gallbladder wall thickening or pericholecystic fluid or fat strandi ng is noted. There is hepatic steatosis. No hepatic space-occupying mass lesion or surface nodularity is noted. No bile duct or pancreatic duct dilatation is noted. No pancreatic calcification is detected. Normal splenic size with multiple calcified granulomas. Again noted is a large mixed soft tissue and cystic lesion with some actual type calcifications in th e left upper quadrant contiguous with left adrenal gland, previously attributed to likely benign three dimensional art instructor ariel left adrenal hematoma. No renal mass lesion is evident on this limited noncontrast examination. No urinary tract calculus or hydroureteronephrosis. Normal appendix. Minimal colonic diverticulosis. No bowel obstruction or intraperitoneal free air. The urinary bladder, uterus and adnexal areas are unremarkable. Prominent abdominal aortic calcification. No abdominal aortic aneurysm. No intraperitoneal or retrope ritoneal or pelvic mass lesion or lymphadenopathy. IMPRESSION: Diminished peripancreatic and bilateral anterior pararenal and paracolic gutter fluid, d iminished peripancreatic stranding; minimal residual perisplenic fluid. Approximately 3 x 3.8 cm developing pseudocyst of the junction of the body and tail of the pancreas Reviewed, dictated and finalized at [facility]. Reviewed, dictated and finalized at [facility]. IMPRESSION: Diminished peripancreatic and bilateral anterior pararenal and par acolic gutter fluid, diminished peripancreatic stranding; minimal residual daina splenic fluid. Approximately 3 x 3.8 cm developing pseudocyst of the junction of the body and tail of the pancreas
== END 2021-11-19 07:30 | disposition home or self-care (01) ==
PROVIDERS: PCP Family Medicine; Visit Provider Family Medicine
DX: K85.01 Idiopathic acute pancreatitis with uninfected necrosis (principal)
CPT/HCPCS: 74176

== ENCOUNTER 2022-01-07 14:13 | Outpatient (CLI) | payer OTHER, SELFPAY ==
[2022-01-07 14:56] LABS: Alanine Aminotransferase 43 U/L (6-35); Albumin Level 4.3 g/dL (3.5-5.1); Alkaline Phosphatase 57 U/L (38-126); Anion Gap 14 mmol/L (8-16); Aspartate Amino Transferase 37 U/L (14-36); Bilirubin,Total 0.4 mg/dL (0.2-1.3); Blood Urea Nitrogen 18 mg/dL (7-17); Calcium 9.6 mg/dL (8.4-10.2); Carbon Dioxide 22 mmol/L (22-30); Chloride 105 mmol/L (98-107); Estimated Glomerular Filt Rate > 60; Glucose 194 mg/dL (65-110); Lipase 410 U/L (23-300); Potassium 3.9 mmol/L (3.4-5.0); Sodium 141 mmol/L (137-145)
== END 2022-01-07 14:14 | disposition home or self-care (01) ==
LOC: ANHLAB 14:14
PROVIDERS: PCP Family Medicine; Visit Provider Surgery
DX: K85.10 Biliary acute pancreatitis without necrosis or infection (principal)
CPT/HCPCS: 36415; 80053; 83690

== ENCOUNTER 2022-01-10 12:31 | Outpatient (CLI) | payer OTHER, SELFPAY ==
--- NOTE | 2022-01-10 12:42 | ECG_ITS ---
Measurements Intervals [place] Rate: 60 P: 48 RI: 173 QRS: 21 QRSD: 87 T: 56 QT: 425 QTc: 425 Interpretive Statements SINUS RHYTHM LOW QRS VOLTAGE IN PRECORDIAL LEADS BASELINE ARTIFACT= I, II, III, AVR, V3-V6 BORDERLINE ECG COMPARED TO ECG 11/11/2018 08:37:39 LOW QRS VOLTAGE IN PRECORDIAL LEADS NOW PRESENT Electronically Signed On 01-10-2022 13:28:39 CDT by Jacob Sherwood D.O.
[2022-01-10 13:48] LABS: Amylase 116 U/L (30-110); Lipase 274 U/L (23-300)
== END 2022-01-10 12:32 | disposition home or self-care (01) ==
LOC: ANHSURGERY 12:36
PROVIDERS: PCP Family Medicine; Visit Provider Surgery
DX: K85.10 Biliary acute pancreatitis without necrosis or infection (principal); I10 Essential (primary) hypertension; Z01.818 Encounter for other preprocedural examination; R94.31 Abnormal electrocardiogram [ECG] [EKG]
CPT/HCPCS: 36415; 82150; 83690; 86850; 86900; 86901; 93005

== ENCOUNTER 2022-01-14 02:30 | Day surgery (SDC) | payer OTHER, SELFPAY ==
[2022-01-08 15:07] VITALS: BMI 32.9
--- NOTE | 2022-01-08 15:23 | PC.NURSE ---
Report to the Outpatient Waiting Room, entrance under the green pavilion located off [facility], at time 8:00 on date 01/14/22. OR Time: 10:00. Time changes happen often and if your time is changed the preop area will call you the afternoon before. - You and your visitor will be asked to self-screen and do not enter if you have any COVID symptoms. - Only one visitor and NO children visitors are allowed at this time. - The patient visitor is requested to leave or wait in car when not with patient due to restrictions. - A mask is required within the hospital. Patients may have clear liquids (water, carbonated beverages, clear teas, apple juice) until 3 hours prior to surgery (7:00) with a maximum of 20 ounces. - No food from midnight until time of surgery Take the following medications with a SIP of water the morning of surgery: ATENOLOL, LEVOTHYROXINE Medications to discontinue per physician: N/A Date to take last dose: N/A Please no make-up, nail malaysian, hairspray, perfume, deodorant, or body powder the day of surgery. No jewelry (including any body piercings) or valuables the day of surgery, leave them at home. Please take a shower or bath the night before, or the morning of, surgery with an antibacterial soap (HIBICLENS). Wear comfortable, loose fitting clothing. - Jewelry must be removed prior to entering the operating room. Rings and piercings that are not removed may be cut off. - The hospital will not accept responsibility for valuables. - Please leave all valuables, including medications, at home the day of surgery. If you are going home after surgery, a licensed driver retraining instructor must drive you home. - NO public transportation without another adult. - We recommend that an adult stay with you for 24 hours following discharge. - We also recommend that you do not drive, make important decision, drink alcoholic beverages, or take any drugs that were not prescribed by your health care provider for at least 24 hours after your discharge time. Follow any additional instructions given to you from your surgeon. If you or anyone in your household have experienced Covid symptoms in the past week, please notify your surgeon or the nurse liaison at the phone number below for possible testing. Telephone instructions given to PT - VIJAY BRASWELL and asked if any additional questions and then verbalized understanding. Patient advised to call surgeon office or pre surgery nurse liaison [phone] if any additional questions.
[2022-01-14] VITALS (12 sets, daily range): BP systolic 119–155; BP diastolic 53–71; PULSE 40–64; RESP 14–18; TEMP 36.1–36.3; O2SAT 94–99
--- NOTE | 2022-01-14 08:39 | WPDHPUPDATE1 ---
History and Physical Update Update Date/Time: 01/14/22 08:39 History and Physical has been reviewed, including an updated exam of the patient. There are NO changes in the patient's condition. Risks, benefits, and alternatives have been discussed and questions answered. Patient agrees to proceed with procedure.
--- NOTE | 2022-01-14 08:43 | WPDANESEPPF ---
Anes - Initial Pre Proc Eval Procedure: Operation Date: 01/14/22 10:00 Proposed Procedures p Laparoscopic Cholecystectomy - Pat Rico MD Date/Time: 01/14/22 08:43 Surgeon: Pat Rico MD Pre Op Diagnosis: biliary pancreatitis Patient Data Age: 61 Gender: F Height: 1.65 m Weight: 89.8 kg Allergies Allergy/AdvReac Type Severity Reaction Status Date / Time sulfamethoxazole Allergy Mild RASH Verified 01/08/22 15:06 trimethoprim Allergy Mild RASH Verified 01/08/22 15:06 Home Medications Medication Instructions Recorded Confirmed Type atenolol 50 mg tablet (Tenormin) 1 tablet PO 1XD 09/29/21 01/08/22 History levothyroxine 112 mcg tablet 1 tablet PO 1XD 09/29/21 01/08/22 History (Synthroid) lisinopril 20 mg tablet 20 mg PO DAILY 01/07/22 01/08/22 History metformin 500 mg tablet 500 mg PO DAILY 01/08/22 01/08/22 History Patient hx anesthesia problems: none Family hx anesthesia problems: none Results Review: All pre-operative results and documents have been reviewed as part of the pre-operative evaluation. [facility] Past Medical History Medical History Hypertension Hypothyroidism Leukocytosis Type 2 diabetes mellitus Upper abdominal pain Surgical History Surgical History History of nasal septoplasty History of sinus surgery History of wisdom tooth extraction Family History Family History Sibling Diabetes mellitus Social History Social History Social History: Surrogate decision maker: Shobha Torres, sister. Code status: Full code. 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 Spiritual care concerns: No Anes - Eval Final PreProcedure Day of Procedure 01/14/22 08:43 Patient weight: obese Heart: regular rate and rhythm Lungs: clear to auscultation Airway: Mallampati scale class II Neurological: alert and oriented Last oral intake: >/= 8 hours ASA classification: III Emergent: no Anesthetic plan: proceed Anesthesia type and monitoring: general ETT and standard monitoring Results Review: All pre-operative results and documents have been reviewed as part of the pre-operative evaluation. Informed Consent: The patient's anesthetic plan and its attendant risks and benefits were discussed with the patient/family/POA. Questions were solicited and answers provided to the satisfaction of the patient/family/POA.
[2022-01-14] MEDS: ACETAMINOPHEN 500 MG TABLET 1000 MG PO (08:44)
[2022-01-14] MEDS: KETOROLAC 15 MG/ML VIAL (*BKC) IV PUSH (08:45)
[2022-01-14] MEDS: LACTATED RINGERS 1,000 ML 30 ML IV CONT ×2 (08:55→10:06)
[2022-01-14 09:00] LABS: Glucose Point of Care 130 mg/dl (65-105)
[2022-01-14] MEDS: ceFAZolin 2 GM/D5W 50 ML 2 GM/50 ML BAG IVPB (09:08)
[2022-01-14] MEDS: BUPIVACAINE/EPINEPHRINE 0.25% 50 ML VIAL 30 ML INFILTRATE (09:20)
--- NOTE | 2022-01-14 09:54 | W.PM.PROC2 ---
Procedure Note - Detailed Date of Procedure 01/14/22 Pre-op Diagnosis biliary pancreatitis, cholecystitis Post-op Diagnosis Same Procedure Performed Laparoscopic cholecystectomy Surgeon Pat Rico MD Anesthesia General Indications 61-year-old female presented initially c biliary pancreatitis. Pt treated conservatively and now setup for interval cholecystectomy. Findings Cholecystitis with cholelithiasis Description of Procedure The patient was taken to the operating room placed in the supine position. After adequate induction of general anesthesia, the patient was prepped and draped in normal sterile fashion. A time-out was then performed to verify the patient's identity as well as the procedure being performed. I then made a 5 mm incision in the infraumbilical region. Through this, a Veress needle was placed into the peritoneal cavity and CO2 gas was then insufflated. After adequate pneumoperitoneum was achieved, the Veress needle was removed and a 5 mm optiview trocar was placed through this incision under direct visualization. I then placed the laparoscope through this trocar site and under direct visualization placed a further 12 mm subxiphoid port as well as 2 additional 5 mm ports in the right upper abdomen. The gallbladder was then identified and was noted to be moderately inflamed, distended, and full of gallstones. I was able to place a grasper at the dome of the gallbladder and this was retracted anterior and cephalad up over the liver. A 2nd retractor was then placed at the infundibulum and retracted laterally, this allowed visualization of the triangle of Calot. I then was able to visualize the cystic duct in its entirety from its proximal insertion into the gallbladder, to its distal junction with the common hepatic/common bile duct junction. At this point, I carefully skeletonized the proximal cystic duct with the [place] dissector. I then clipped and transected the proximal cystic duct. Next I visualized the cystic artery. Again the artery was skeletonized, clipped, and transected. I then used the Bovie cautery to take down the peritoneal attachments of the gallbladder off the liver bed. This was somewhat difficult given the amount of inflammation in the posterior space. Once the gallbladder specimen was completely detached, an endo-pouch was placed through the 12 mm port site. I then placed the gallbladder specimen into the Endo pouch and removed the endo-pouch from the 12 mm port site. The specimen will now be sent to pathology for further review. I then copiously irrigated the right upper quadrant. Some mild oozing was noted in the liver bed and this was controlled with the bovie cautery. Hemostasis was noted in the liver bed, the clips were noted to be in good position on both the cystic duct stump and the cystic artery stump. No other pathology was noted in the right upper quadrant. I then moved the laparoscope to the subxiphoid port. No iatrogenic injury or other pathology was noted in the lower abdomen. I then closed the 12 mm trocar site under direct visualization using the Ric cone and 0 Vicryl suture. At this point, the abdomen was desufflated and all ports removed. All port sites were then closed with 4.O Monocryl subcuticular sutures. Dermabond was placed on each incision. The patient tolerated the procedure well, was extubated in the operating room postoperative and will be transferred to the recovery room in stable condition Estimated Blood Loss 5 Drains No Packing No Pathology Yes Complications No immediate complications Condition Stable Disposition PACU [facility] Billing Surgery - Charge Forward: Surgery Billing
[2022-01-14 10:20] LABS: Glucose Point of Care 143 mg/dl (65-105)
[2022-01-14] MEDS: fentaNYL CITRATE INJ (*CRX) 100 MCG/2 ML VIAL 25 MCG IV PUSH (10:31)
[2022-01-14] MEDS: oxyCODONE HCL (*CRX) 5 MG TAB IR PO (11:11)
--- NOTE | 2022-01-14 11:35 | ECG_ITS ---
Measurements Intervals [place] Rate: 39 P: 64 [place]: 163 QRS: 24 QRSD: 91 T: 40 QT: 495 QTc: 403 Interpretive Statements SINUS BRADYCARDIA LOW QRS VOLTAGE IN PRECORDIAL LEADS BORDERLINE ECG COMPARED TO ECG 01/10/2022 12:59:06 HEART RATE HAS DECREASED Electronically Signed On 01-14-2022 15:12:20 CDT by Andre Harper M.D.
--- NOTE | 2022-01-14 11:35 | SUR.PHASEII ---
1135- Notified Dr. Herrmann patient bradycardic with HR in high 30's-40's with stable blood pressure 142/63 and denying symptoms at this time. Patient took her Atenolol 50MG at [address] Herrmann obtain STAT EKG.
--- NOTE | 2022-01-14 11:45 | SUR.PHASEII ---
1145- EKG obtained and shown to Dr. Herrmann- sinus bradycardia with HR of 39. Patient remaining asymptomatic with stable BP 140's/60's. Per Dr. Herrmann continue to monitor patient and goal heart rate of high 40's before patient can be discharged home. Encourage patient to follow up with primary care provider in regards to bradycardia and Atenolol dosing.
== END 2022-01-14 13:13 | disposition home or self-care (01) ==
PROVIDERS: PCP Family Medicine; Visit Provider Surgery
PROC: 0FT44ZZ Resection of Gallbladder, Percutaneous Endoscopic Approach (ICD-10-PCS; CPT 47562; principal; 2022-01-14 10:00)
DX: K80.10 Calculus of gallbladder with chronic cholecystitis without obstruction (principal); Z87.19 Personal history of other diseases of the digestive system; I10 Essential (primary) hypertension; E03.9 Hypothyroidism, unspecified; E11.9 Type 2 diabetes mellitus without complications; Z87.891 Personal history of nicotine dependence; E66.9 Obesity, unspecified; Z68.33 Body mass index [BMI] 33.0-33.9, adult; Z79.84 Long term (current) use of oral hypoglycemic drugs
CPT/HCPCS: 47562; 36415; 82150; 82948; 83690; 86850; 86900; 86901; 88304; 93005; A9270; J0690; J1885; J2250; J2405; J2704; J3010; J7030; J7120

== ENCOUNTER → 2022-04-01 09:01 | Outpatient (CLI) | payer OTHER, SELFPAY ==
--- NOTE | ~2022-04-01 | CT_ITS ---
EXAMINATION: CT abdomen pelvis wo con DATE: 04/01/2022 09:17 INDICATION: Pseudocyst of pancreas. TECHNIQUE: Computed tomography (CT) of the abdomen and pelvis was performed without intravenous contr ast. Automated exposure control and iterative reconstruction technique were employed. The dose-length product was 918.67 mGy-cm. COMPARISON: CT abdomen and pelvis 11/19/2021, 09/29/21, abdomen MRI 10/02/2021 FINDINGS: The visualized portions of the lung bases demonstrate chronic peripheral septal thickening. No pleural effusion. The heart size is normal. There are coronary artery calcifications. No pericard ial effusion. There is diffuse hepatic steatosis. There are changes of cholecystectomy. Calcification s in the spleen are consistent with old granulomatous disease. There is a 3.2 x 2.5 cm cyst in the ta il of the pancreas. The right adrenal gland and kidneys are normal. There is a 7.1 x 6.2 cm mass in l eft upper quadrant involving the left adrenal gland with large cystic component with peripheral calci fications. There is diverticulosis of the colon without evidence of diverticulitis. There are no dila emy loops of bowel. The appendix is normal. There are no pathologically enlarged lymph nodes. There i s trace perisplenic ascites. There is moderate lumbar spondylosis. IMPRESSION: 1. 7.1 cm mass in left upper quadrant with involvement of left adrenal gland, stable from 09/29/21, shay gottlieb a chronic hematoma. 2. 3.2 x 2.5 cm cyst in the tail of the pancreas, decreased from 4.5 x 3.0 cm on 11/19/2021, consistent with a pseudocyst. 3. Diffuse hepatic steatosis. Reviewed, dictated and finalized at location [facility]. STAFF IMPRESSION: 1. 7.1 cm mass in left upper quadrant with involvement of left adrenal gland, s table from 09/29/21, likely a chronic hematoma. 2. 3.2 x 2.5 cm cyst in the tail of the pancreas, decreased from 4.5 x 3.0 cm o n 11/19/2021, consistent with a pseudocyst. 3. Diffuse hepatic steatosis.
== END ==
PROVIDERS: PCP Family Medicine; Visit Provider Family Medicine
DX: K86.3 Pseudocyst of pancreas (principal); K76.0 Fatty (change of) liver, not elsewhere classified
CPT/HCPCS: 74176

== ENCOUNTER 2023-02-18 07:36 | Outpatient (CLI) | payer OTHER, SELFPAY ==
--- NOTE | ~2023-02-18 | US_ITS ---
Limited Abdominal Sonogram: Real-time sonographic imaging of the right upper quadrant was performed. Clinical History: Fatty liver Findings: The liver appears echogenic, with no evidence of mass lesion or bile duct dilatation. Main portal vein demonstrates normal direction of flow. The gallbladder is absent, compatible prior gilmar cystectomy. The common bile duct measures 7 mm. There is an apparent 2.8 x 2.1 x 2.8 cm hypoechoic ma ss at the region of the pancreas.. Impression: Suspected 2.8 cm pancreatic mass, indeterminate. Pre and postcontrast CT or MR recommended to further evaluate. Diffuse fatty infiltration of liver. Reviewed, dictated and finalized at location . L MARKETING COORDINATOR Impression: Suspected 2.8 cm pancreatic mass, indeterminate. Pre and postcontrast CT or MR recommended to further evaluate. Diffuse fatty infiltration of liver.
== END 2023-02-18 07:37 | disposition home or self-care (01) ==
PROVIDERS: PCP Family Medicine; Visit Provider Family Medicine
DX: K86.3 Pseudocyst of pancreas (principal); K76.0 Fatty (change of) liver, not elsewhere classified
CPT/HCPCS: 76705

== ENCOUNTER 2023-02-25 06:54 | Outpatient (CLI) | payer OTHER, SELFPAY ==
--- NOTE | ~2023-02-25 | CT_ITS ---
CT of the Abdomen and Pelvis: Indication: Pancreatic pseudocyst Technique: 2.5 mm axial scans were obtained through the abdomen and pelvis prior to and following in travenous administration of 100 cc of Omnipaque 350. Dose reduction technique was used on this scan b y utilizing automated exposure control and iterative reconstruction technique. The dose-length produc t (DLP) was 2184.28 mGy-cm. COMPARISON: 04/01/2022 Findings: Scans through the lung bases are unremarkable. There is diffuse fatty infiltration of the liver. Cholecystectomy clips are present. The spleen, righ t adrenal gland, and kidneys are within normal limits. 7.1 cm left adrenal mass with curvilinear daina pheral calcification and extensive central cystic change is essentially stable from prior exam. Previ ously noted cystic lesion at the tail of pancreas is further decrease in size, now measuring 1.8 x 1. 0 cm. There are atherosclerotic calcifications of the aorta. No lymphadenopathy. No bowel obstruction or bowel wall thickening. There is no evidence to suggest acute appendicitis. Images through the pelvis were performed. Urinary bladder unremarkable. No adnexal mass seen. No asci nidia. Impression: Cystic lesion in the tail of pancreas is further decrease in size from prior exam, now measuring 1.8 x 1.0 cm. Stable 7.1 cm predominantly cystic left adrenal mass, as detailed above. Diffuse hepatic steatosis. Reviewed, dictated and finalized at [facility]. EAR MEDICINE PHYSICIAN Impression: Cystic lesion in the tail of pancreas is further decrease in size from prior ex am, now measuring 1.8 x 1.0 cm. Stable 7.1 cm predominantly cystic left adrenal mass, as detailed above. Diffuse hepatic steatosis.
[2023-02-25 07:21] LABS: Estimated Glomerular Filt Rate > 60
== END 2023-02-25 06:55 | disposition home or self-care (01) ==
PROVIDERS: PCP Family Medicine; Visit Provider Family Medicine
DX: E27.8 Other specified disorders of adrenal gland (principal); K86.3 Pseudocyst of pancreas; K76.0 Fatty (change of) liver, not elsewhere classified
CPT/HCPCS: 74178; Q9967